=== PATIENT | female | born 1965 | race Caucasian/White ===

== ENCOUNTER → 2016-07-05 | Outpatient (CLI) | payer BC ==
[~2016-07-05] MED LIST: CITA20TA9 PO; CYCL10TA6 PO; HYDC25 PO; LISI-729 PO; PANT40TA PO; RXC5 PO; VALA1TAB PO
--- NOTE | 2016-07-05 13:35 | MAMMOGRAPHY REPORT ---
BILATERAL DIGITAL SCREENING MAMMOGRAM TOMOSYNTHESIS WITH CAD: 07/05/2016 CLINICAL HISTORY: Routine screening. Patient has no complaints. TECHNIQUE: Breast tomosynthesis in addition to standard 2D mammography was performed. Current study was also evaluated with a Computer Aided Detection (CAD) system. COMPARISON: Comparison is made to exams dated: 07/01/2015 mammogram, 04/03/2014 mammogram, 08/14/2014 mammogram, 04/15/2013 mammogram, and 04/09/2012 mammogram - [facility]. BREAST COMPOSITION: The tissue of both breasts is heterogeneously dense, which may obscure small ma sses. FINDINGS: No suspicious masses, calcifications, or areas of architectural distortion are noted in e ither breast. There has been no significant interval change compared to prior exams. Nodular asymme try in the left superior posterior breast on the MLO view appears similar to the 2015 exam. IMPRESSION: ACR BI-RADS CATEGORY 2: BENIGN There is no mammographic evidence of malignancy. A 1 year screening mammogram is recommended. The p atient will receive written notification of the results. Approximately 10% of breast cancers are not detected with mammography. A negative mammographic repor t should not delay biopsy if a clinically suggestive mass is present. Brenda Miller M.D. ah/:07/05/2016 12:44:22 Metal Sprayer Machined Parts: Janessa MONTE(Blaine)(M), [facility] letter sent: Normal 1/2 BI-RADS Code: ACR BI-RADS Category 2: Benign
== END | disposition home or self-care (01) ==
LOC: C.MAMM 07:47
PROVIDERS: ATTEND Family Medicine
DX: Z12.31 Encounter for screening mammogram for malignant neoplasm of breast (principal)

== ENCOUNTER → 2017-07-09 | Outpatient (CLI) | payer OTHER ==
--- NOTE | 2017-07-10 07:57 | MAMMOGRAPHY REPORT ---
BILATERAL DIGITAL SCREENING MAMMOGRAM TOMOSYNTHESIS WITH CAD: 07/09/2017 CLINICAL HISTORY: Routine screening. Patient has no complaints. TECHNIQUE: Breast tomosynthesis in addition to standard 2D mammography was performed. Current study was also evaluated with a Computer Aided Detection (CAD) system. COMPARISON: Comparison is made to exams dated: 07/05/2016 mammogram, 07/01/2015 mammogram, 04/03/2014 mammogram, 04/02/2013 mammogram, 04/01/2012 mammogram, and 03/29/2011 mammogram - [facility]. BREAST COMPOSITION: The tissue of both breasts is heterogeneously dense, which may obscure small mas ses. FINDINGS: The parenchymal pattern is unchanged. No developing mass, architectural distortion or clus ter of suspicious microcalcifications is seen in either breast. IMPRESSION: ACR BI-RADS CATEGORY 2: BENIGN There is no mammographic evidence of malignancy. A 1 year screening mammogram is recommended. The pa tient will receive written notification of the results. Approximately 10% of breast cancers are not detected with mammography. A negative mammographic report should not delay biopsy if a clinically suggestive mass is present. Harmony Dill M.D. ay/:07/09/2017 17:42:44 Commercial Loan Manager: Opal MONTE(Blaine)(M), [facility] letter sent: Normal 1/2 BI-RADS Code: ACR BI-RADS Category 2: Benign
== END | disposition home or self-care (01) ==
LOC: C.MAMM 08:12
PROVIDERS: ATTEND Physician Assistant
DX: Z12.31 Encounter for screening mammogram for malignant neoplasm of breast (principal)

== ENCOUNTER 2018-11-19 06:57 | Inpatient (IN) ==
--- NOTE | 2018-10-10 11:16 | PAT Medication Instructions ---
Medication Instructions Date of Service October 10, 2018 Home Medications acetaminophen-codeine 1 tab PO UD PRN citalopram 40 mg PO QAM diphenhydramine HCl [Benadryl] 25 mg PO UD PRN fexofenadine [Jessica Allergy] 60 mg PO UD PRN hydrochlorothiazide 25 mg PO QAM ibuprofen 600 mg PO UD PRN lisinopril 5 mg PO QAM pantoprazole 40 mg PO QAM pseudoephedrine HCl [Sudafed] 30 mg PO UD PRN ASK your surgeon for instructions ibuprofen 600 mg PO UD PRN DO NOT take the morning of surgery diphenhydramine HCl [Benadryl] 25 mg PO UD PRN fexofenadine [Jessica Allergy] 60 mg PO UD PRN hydrochlorothiazide 25 mg PO QAM lisinopril 5 mg PO QAM pseudoephedrine HCl [Sudafed] 30 mg PO UD PRN Take morning of surgery With a small sip of water, OTHERWISE NOTHING TO EAT OR DRINK AFTER MIDNIGHT: acetaminophen-codeine 1 tab PO UD PRN (okay to take up to 4 hours prior to surgery if needed) citalopram 40 mg PO QAM pantoprazole 40 mg PO QAM Other Notes If you have any questions please call us at [phone] or [phone] or [phone] or [phone]
--- NOTE | 2018-10-11 09:39 | Anesthesiology Consultation ---
Date of Service October 11, 2018 Assessment & Plan (1) Encounter for pre-operative examination: Chart Review Chart Review: Acceptable Risk for Surgery and Patient seen in Pre Admission Testing Teaching & Discussion Pre-Anesthesia Teaching/Discussion Notes: Instructed NPO after midnight before surgery,except medications with 15 cc of water. Medication instructions provided according to the PAT guidelines. History Surgery Operation Date: 10/25/18 07:45 Proposed Procedures p L4-L5 Removal Hardware, L3-L5 Decompression, Possible L5-S1 Fusion, Spinal Cord Monitoring - Enoch Rosas DO Height/Weight Height: 5 ft Weight: 80.1 kg Allergies Allergy/AdvReac Type Severity Reaction Status Date / Time Iodinated Contrast- Oral and Allergy Unknown IVP Verified 10/08/18 14:08 IV Dye DYE-HIVES latex Allergy Unknown REACTION Verified 10/08/18 14:08 TO LATEX POWDER ONLY strawberry Allergy Unknown HIVES, Verified 10/08/18 14:08 TROUBLE BREATHING Medications Home Medications Medication Instructions Recorded Confirmed Last Taken acetaminophen-codeine 1 tab PO UD PRN 10/08/18 10/08/18 Unknown citalopram 40 mg PO QAM 10/08/18 10/08/18 10/08/18 diphenhydramine HCl [Benadryl] 25 mg PO UD PRN 10/08/18 10/08/18 Unknown fexofenadine [Jessica Allergy] 60 mg PO UD PRN 10/08/18 10/08/18 Unknown hydrochlorothiazide 25 mg PO QAM 10/08/18 10/08/18 10/08/18 ibuprofen 600 mg PO UD PRN 10/08/18 10/08/18 Unknown lisinopril 5 mg PO QAM 10/08/18 10/08/18 10/08/18 pantoprazole 40 mg PO QAM 10/08/18 10/08/18 10/08/18 pseudoephedrine HCl [Sudafed] 30 mg PO UD PRN 10/08/18 10/08/18 Unknown Past Medical History Medical History Acid reflux CONTROLLED Adenomyosis Anxiety and depression Fatty liver History of anemia HX IRON INFUSIONS X 2 "LAST YR"; SINCE IMPROVED Hyperlipidemia Hypertension Osteoarthritis Spinal stenosis Exercise / Class Metabolic Activity III < 4 Walking/Shop/Light housework (USES CANE PRN) Past Family History Family History Mother Family history of lung cancer Father Family history of rectal cancer Grandfather Family history of breast cancer Other Family history of breast cancer in mother Past Surgical History Surgical History History of carpal tunnel surgery of right wrist History of colonoscopy (X2); ONE WITH ENDOSCOPY History of dilation and curettage History of lumbar fusion History of shoulder surgery RIGHT History of wisdom tooth extraction Past Anesthesia History No Hx of Anesthesia Complications and No Family Hx of Anesthesia Complications History of PONV No Hx of PONV and No Hx of Motion Sickness Social History Smoking Status: Former smoker Do You Dip or Chew Tobacco: No Smoking End Date: QUIT 1987 Hx Alcohol Use: Yes Alcohol type: beer and wine alcohol intake frequency: holidays/special occasions only Hx 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 Physical Exam Vital Signs VITALS BP 130/84 P 80 TEMP 98.9 SP02 96%RA RESP 18 PHYSICAL Full neck and c-spine range of motion. Full TMJ range of motion. TMD 3.5 finger breaths Mallampati Score 2 Dentition: intact Lungs: clear throughout to auscultation Cardiac: regular rate and rhythm, no murmurs noted Spine: normal Carotid arteries: negative bruit Extremities: no edema Testing Laboratory Results 10/11/18 09:58 10/11/18 09:58 10/11/18 10/11/18 10/11/18 09:58 09:58 09:58 PT 10.6 INR 1.0 APTT 27.3 Urine Color Yellow Urine Appearance Clear Urine pH 5.0 Ur Specific [place] 1.017 Urine Protein Negative Urine Glucose (UA) Negative Urine Ketones Negative Urine Nitrite Negative Ur Leukocyte Esterase 1+ H Urine WBC (Auto) 1-5 Urine RBC (Auto) 5-10 H U Hyaline Cast (Auto) 1-5 U Epithel Cells (Auto) >30 H Urine Bacteria (Auto) 1+ H Blood Type A Positive Antibody Screen NEGATIVE Surgeon made aware of abnormal UA. Electrocardiogram Date: 10/11/18 NSR at 64bpm. Low voltage QRS. Chest X-Ray Date: 10/11/18 Findings: + NAD Stress Test Date: 04/23/13 Type: DSE Nonischemic DSE. No arrhythmia noted with stress. EF 60-65%. No RWMA. No significant valvular disease. 93% MPHR.
--- NOTE | 2018-10-11 10:30 | XRay Report ---
XR chest Pre-admission PA/Lat CLINICAL HISTORY: pat preoperative evaluation COMPARISON STUDY: 04/11/2016 FINDINGS: The bones soft tissues and hemidiaphragms are normal. The cardiomediastinal silhouette is n ormal. The lungs are clear. The pulmonary vasculature is normal. IMPRESSION: Negative chest. The above report was generated using voice recognition software. It may contain grammatical, syntax or spelling errors. Electronically signed by: Gumaro Zhang M.D. 10/11/2018 10:29 AM
[2018-10-11 10:49] LABS: Basophils # (auto) 0.03 K/uL (0-0.2); Basophils % (auto) 0.3 %; Eosinophils # (auto) 0.29 K/uL (0-0.5); Eosinophils % (auto) 3.4 %; Hematocrit (blood only) 42.8 % (37-47); Hemoglobin 14.6 g/dL (12.0-16.0); Immature Granulocytes # (auto) 0.01 K/uL (0.00-0.02); Immature Granulocytes % (auto) 0.1 %; Lymphocytes # (auto) 2.48 K/uL (1.2-3.4); Lymphocytes % (auto) 28.9 %; Mean Corpuscular Hgb Conc 34.1 g/dL (32-36); Mean Corpuscular Volume 83.9 fL (80-100); Mean Platelet Volume 9.2 fL (7.4-10.4); Monocytes # (auto) 0.66 K/uL (0.11-0.59); Monocytes % (auto) 7.7 %; Neutrophils # (auto) 5.12 K/uL (1.4-6.5); Neutrophils % (auto) 59.6 %; Platelet Count 329 K/uL (130-400); RDW Coefficient of Variation 12.9 % (11.5-14.5); RDW Standard Deviation 39.1 fL (36.4-46.3); White Blood Count 8.59 K/uL (4.8-10.8)
[2018-10-11 10:55] LABS: Appearance Urine Clear (Clear); Bacteria Urine Automated 1+ (Negative); Bilirubin Urine Negative (Negative); Blood Urine Trace (Negative); Color Urine Yellow; Epithelial Cell Urine Auto >30 /lpf (0-5); Glucose Urine UA Negative (Negative); Ketones Urine Negative (Negative); Leukocyte Esterase Urine 1+ (Negative); Nitrite Urine Negative (Negative); Protein Urine Negative (Negative); Specific Gravity Urine 1.017 (1.000-1.030); Urobilinogen Urine Negative (Negative)
[2018-10-11 10:57] LABS: BUN Creatinine Ratio 15.2 (10-20); Calcium 8.8 mg/dl (8.5-10.1); Creatinine Clr Calc Pharmacy 73.5 ml/min; Est GFR (Non-African American) 81.1; Potassium 3.9 mmol/L (3.5-5.1)
[2018-10-11 11:01] LABS: Partial Thromboplastin Time 27.3 Seconds (21.0-31.0); Prothrombin Time 10.6 Seconds (9.0-12.0)
[~2018-11-19 06:57] MED LIST changes: +ACETAMINOPHEN 500 MG TAB PO SCH; +CEFAZOLIN 2000MG 2,000 MG/15 ML SYR IV SCH; -CITA20TA9 PO; -CYCL10TA6 PO; +CeleBREX 200 MG CAP PO SCH; +GABAPENTIN 300 MG x 3 PO SCH; +GABAPENTIN 900 MG DOSE PO SCH; -HYDC25 PO; -LISI-729 PO; +LR 15ML/HR IV SCH; +LR 500ML BOLUS IV SCH; -PANT40TA PO; -RXC5 PO; +SODIUM CHLORIDE 0.9% 250 ML IV PRN; -VALA1TAB PO
[2018-11-19] MEDS ORDERED: SODIUM CHLORIDE 0.9% 250 ML IV PRN (07:15)
[2018-11-19] MEDS ORDERED: ONDANSETRON INJ 2 MG/ML 2 ML VIAL ONE ×2 (08:17→11:12)
[2018-11-19] MEDS ORDERED: LIDOCAINE HCL 2% 2 ML VIAL/AMP(20MG/ML) INFIL ONE (08:17)
[2018-11-19] MEDS ORDERED: PROPOFOL IV EMULSION 10 MG/ML 20 ML VIAL IV ONE (08:17)
[2018-11-19] MEDS ORDERED: ROCURONIUM BROMIDE 10 MG/ML 5 ML VIAL ONE ×2 (08:17→11:27)
[2018-11-19] MEDS ORDERED: fentaNYL citrate 100 MCG/2 ML VIAL ONE ×3 (08:17→10:04)
[2018-11-19] MEDS ORDERED: MIDAZOLAM HCL 1 MG/ML 2ML VIAL ONE (08:17)
[2018-11-19] MEDS ORDERED: NEOSTIGMINE METHYLSULFATE 1 MG/ML 10ML VIAL ONE (08:24)
[2018-11-19] MEDS ORDERED: GLYCOPYRROLATE 0.2 MG/ML VIAL ONE (08:24)
[2018-11-19] MEDS ORDERED: ATROPINE SULFATE 0.1 MG/ML 10ML SYR IV PRN (08:44)
[2018-11-19] MEDS ORDERED: LABETALOL HCL IV 5 MG/ML 20ML IV PRN (08:44)
[2018-11-19] MEDS ORDERED: ONDANSETRON INJ 2 MG/ML 2 ML VIAL IV PRN ×2 (08:44→13:04)
[2018-11-19] MEDS ORDERED: PROMETHAZINE HCL 6.25 MG in SODIUM CHLORIDE 0.9% 50 ML IV PRN (08:44)
--- NOTE | 2018-11-19 08:49 | History & Physical Bridge Note ---
Date of Service November 19, 2018 History & Physical Bridge Note I have examined the patient, reviewed the History & Physical and in the interval since the performance of the History & Physical I have noted the following changes of clinical significance: no changes noted
--- NOTE | 2018-11-19 08:50 | History & Physical Report ---
Date of Service November 19, 2018 Assessment & Plan (1) Spinal stenosis, lumbar region with neurogenic claudication: Removal of hardware L4-L5 L3-4 decompression L3-L5 possible L5-S1 fusion Present on Admission?: Yes History of Present Illness Chief Complaint: Back and bilateral leg pain Primary Care Provider: Christine Haas PA-C This is a 53-year-old female who presents with chronic persistent back and bilateral leg pain. After failing extensive course of nonoperative care she is here for surgical intervention. Allergies Allergy/AdvReac Type Severity Reaction Status Date / Time Iodinated Contrast- Oral and Allergy Unknown IVP Verified 11/19/18 07:33 IV Dye DYE-HIVES latex Allergy Unknown REACTION Verified 11/19/18 07:33 TO LATEX POWDER ONLY strawberry Allergy Unknown HIVES, Verified 11/19/18 07:33 TROUBLE BREATHING Home Medications Home Medications Medication Instructions Recorded Confirmed Type acetaminophen-codeine 1 tab PO UD PRN 10/08/18 11/19/18 History citalopram 40 mg PO QAM 10/08/18 10/08/18 History diphenhydramine HCl [Benadryl] 25 mg PO UD PRN 10/08/18 11/19/18 History fexofenadine [Jessica Allergy] 60 mg PO UD PRN 10/08/18 11/19/18 History hydrochlorothiazide 25 mg PO QAM 10/08/18 10/08/18 History ibuprofen 600 mg PO UD PRN 10/08/18 11/19/18 History lisinopril 5 mg PO QAM 10/08/18 10/08/18 History pantoprazole 40 mg PO QAM 10/08/18 10/08/18 History pseudoephedrine HCl [Sudafed] 30 mg PO UD PRN 10/08/18 11/19/18 History Past Med/Surg History Medical History Acid reflux CONTROLLED Adenomyosis Anxiety and depression Fatty liver History of anemia HX IRON INFUSIONS X 2 "LAST YR"; SINCE IMPROVED Hyperlipidemia Hypertension Osteoarthritis Spinal stenosis Surgical History History of carpal tunnel surgery of right wrist History of colonoscopy (X2); ONE WITH ENDOSCOPY History of dilation and curettage History of lumbar fusion History of shoulder surgery RIGHT History of wisdom tooth extraction Family History Mother Family history of lung cancer Father Family history of rectal cancer Grandfather Family history of breast cancer Other Family history of breast cancer in mother Social History Preferred Language: Colombian Communication Ability: Effective Electric Motor Control Assembler Required: No Beliefs That Will Affect Care: None Current Living Situation: Family Other Information That Helps Us Care for You: No Feels Safe at Home: Yes Smoking Status: Former smoker Do You Dip or Chew Tobacco: No Smoking End Date: QUIT 1987 Hx Alcohol Use: Yes Alcohol type: beer and wine Hx Substance Use: 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 Results & Data Vital Signs (Past 12 Hours) Vital Signs Temp Pulse Resp BP Pulse Ox 11/19/18 07:40 37.1 C 86 20 150/83 H 98
[2018-11-19] MEDS ORDERED: BUPIVACAINE/EPINEPHRINE 0.5% MPF 1:200,000 30 ML VIAL ONE (09:06)
[2018-11-19] MEDS ORDERED: BACITRACIN INJ 50,000 UNIT VIAL ONE (09:07)
[2018-11-19] MEDS ORDERED: HYDROmorphone INJ 2 MG/ML SYR/VIAL ONE ×2 (10:03→11:24)
[2018-11-19] MEDS ORDERED: FLOSEAL HEMOSTATIC MATRIX 10ML TOP ONE (10:11)
[2018-11-19] MEDS ORDERED: ePHEDrine sulfate 50 MG/ML SYR ONE (11:12)
[2018-11-19] MEDS ORDERED: PHENYLEPHRINE 100MCG/ML 5ML SYR ONE (11:12)
[2018-11-19] MEDS ORDERED: KETOROLAC 30 MG/ML VIAL ONE (11:12)
[2018-11-19] MEDS ORDERED: LARYING-O-JET KIT (LTA) ONE (11:27)
--- NOTE | 2018-11-19 11:38 | Operative Report ---
Post Operative Report Pre & Post Diagnosis Operation Date: 11/19/18 09:05 Pre-Op Diagnosis: Spinal stenosis, lumbar region with neurogenic claudication Post-Op Diagnosis: Spinal stenosis, lumbar region with neurogenic claudication Procedure Operation Date: 11/19/18 09:05 Actual Procedures #1 removal of posterior instrumentation L4-5 per #2 exploration of fusion L4-5 per #3 lumbar decompression with bilateral medial facetectomies and foraminotomies L2-3 L3-4. #4 posterior spinal fusion L3-4. #5 placement posterior instrumentation L3-4 per #6 interbody fusion L3-4. #7 placement of peek cage 10 x 22 mm at L3-4 per #8 placement of local autograft in the posterior lateral gutters per #9 placement infuse collagen sponge bone mass graft in the posterior lateral gutters and ostial amp and interbody space. Surgeon Enoch Rosas, [employer]inc Plating Machine Operator None Estimated Blood Loss 150 Findings See Below The patient is 5 foot tall 79.7 kg with a BMI of 34.3. The patient's body habitus created marked increased technical difficulty throughout the procedure adding at least 25% increase in operative time. Specimens None Indications This is a 53-year-old female that presents with significant back and bilateral leg pain progressive for several months. It is unresponsive to nonoperative care and is here for surgical intervention. Description of Procedure Patient was met with identified and informed consent obtained. She was then taken to the operative suite underwent intubation placed in a prone position the Marcos table on top of the Kishor frame. Prominences well-padded eyes inspected to ensure no external pressure placed upon the peer at this point the lumbar spine was prepped and draped in a normal sterile fashion. Sharp dissection with the assistance of Bovie cautery was performed down to and exposing the lamina and transverse processes of L3 and the instrumentation at L4-L5 bilaterally. I then proceed remove the hardware bilaterally at L4-5 explore the fusion mass noting it to be intact. Then performed a complete laminectomy of L3 partial laminectomy of L2 and bilateral medial facetectomies foraminotomies addressing severe stenosis. Pedicle screws were then placed in L3 and L4 bilaterally with the assistance of fluoroscopy the process douglas placed. By way of a transforaminal approach on the left complete discectomy was performed in plate graded to subcortical bleeding bone and a 10 x 22 mm peek cage filled with osteo-amp bone graft tapped in position. The rods were then compressed locked into final position bilaterally. The transverse processes of L3 and L4 burred to subcortical bleeding bone. Infuse collagen sponge mass graft local autograft placed in the posterior lateral gutters. 15 round JORDY drain inserted. The incision was then closed with 1 Vicryl in the fascia 2-0 Vicryl substantially and 4-0 Monocryl for final skin closure. Steri-Strips dressings placed. Patient will continue PACU stable condition. Please note spinal cord monitoring was utilized throughout the procedure no changes in. I attest to the content of the Intraoperative Record and any orders documented therein. Any exceptions are noted below.
--- NOTE | 2018-11-19 11:41 | Fluoroscopy Report ---
FL lumbar spine 2-3V CLINICAL HISTORY: 53 years-old Female presenting with L3-L5 REMOVAL OF HARDWARE/L3-L5 DECOMP/POSS. L5 -S1. TECHNIQUE: 2 fluoroscopic image(s) recorded as part of an intraoperative procedure. COMPARISON: 02/03/2016. FINDINGS/IMPRESSION: Bilateral posterior transpedicular screw douglas fixation of L3-4 with interbody spacers at L3-4 and L4-5 . Laminectomy defects at L3 and L4. Please see surgical report for further details. Fluoroscopy dosage (mGy): 12.41. Fluoroscopy time: 13.7 seconds. Number or time of high level fluoroscopy (HLF), digital spot, or digital subtraction images: 0. Electronically signed by: Jorje Valiente M.D. 11/19/2018 11:40 AM
[2018-11-19] MEDS: HYDROmorphone INJ 1 MG/ML SYRINGE IV PRN ×4 (12:05→12:20)
--- NOTE | 2018-11-19 12:33 | Anesthesiology Progress Note ---
Date of Service November 19, 2018 Anesthesia Post Procedure Vital Signs Vital Signs: Temp Pulse Pulse Resp BP BP Pulse Ox 11/19/18 12:30 37.0 C 72 18 134/90 99 11/19/18 12:20 75 18 136/73 99 11/19/18 12:10 78 18 136/84 100 11/19/18 12:00 79 18 135/82 99 11/19/18 11:50 79 18 147/86 H 99 11/19/18 11:43 37.1 C 85 18 150/98 H 97 11/19/18 07:40 37.1 C 86 20 150/83 H 98 Pain Intensity Medial Back: Pain Intensity: 3 Transfer of Care Handoff Completed per policy Notes Mental Status: alert / awake / arousable Patient Amnestic to Procedure: Yes Nausea / Vomiting: adequately controlled Pain: adequately controlled Airway Patency, RR, SpO2: stable & adequate BP & HR: stable & adequate Hydration State: stable & adequate Anesthetic Complications: no major complications apparent
[2018-11-19] MEDS ORDERED: ACETAMINOPHEN 1,000 MG/100 ML VIAL IV PRN (13:04)
[2018-11-19] MEDS ORDERED: ONDANSETRON 4 MG TAB PO PRN (13:04)
[2018-11-19] MEDS ORDERED: LORazepam 0.5 MG/1 ML VIAL IV PRN (13:04)
[2018-11-19] MEDS ORDERED: ALUMINUM/MAGNESIUM SUSP 30 ML UDC PO PRN (13:04)
[2018-11-19] MEDS ORDERED: PSEUDOEPHEDRINE HCL 30 MG TAB PO PRN (13:04)
[2018-11-19] MEDS ORDERED: FEXOFENADINE 60 MG TAB PO PRN (13:04)
[2018-11-19] MEDS ORDERED: LORazepam 0.5 MG TAB PO PRN (13:04)
[2018-11-19] MEDS ORDERED: DO NOT ADMINISTER PNEUMOCOCCAL VACCINE PRN (13:04)
[2018-11-19] MEDS ORDERED: DEXAMETHASONE SOD PHOSPHATE 8 MG in SYRINGE 0 ML IV PRN (13:04)
[2018-11-19] MEDS ORDERED: SOD PHOSPHATE/SOD BIPHOSPHATE ENEMA 132 ML BTL PR PRN (13:04)
[2018-11-19] MEDS ORDERED: MAGNESIUM HYDROXIDE SUSP 30 ML UDC PO PRN (13:04)
[2018-11-19] MEDS ORDERED: RACEPINEPHRINE 2.25% NEBU SOLN 0.5 ML VIAL INH PRN (13:04)
[2018-11-19] MEDS ORDERED: PROMETHAZINE HCL 12.5 MG in SODIUM CHLORIDE 0.9% 50 ML IV PRN (13:04)
[2018-11-19] MEDS ORDERED: METOCLOPRAMIDE HCL INJ 5 MG/ML 2 ML VIAL IV PRN (13:04)
[2018-11-19] MEDS ORDERED: HYDROmorphone INJ 0.5 MG/0.5 ML SYR IV PRN (13:04)
[2018-11-19] MEDS ORDERED: NALOXONE HCL 0.4 MG/1 ML VIAL/CARP IV PRN (13:04)
[2018-11-19] MEDS ORDERED: DO NOT ADMINISTER FLU VACCINE PRN (13:04)
[2018-11-19] MEDS ORDERED: BISACODYL 10 MG SUPP PR PRN (13:04)
[2018-11-19] MEDS ORDERED: FAMOTIDINE 20 MG TAB PO PRN (13:04)
[2018-11-19] MEDS ORDERED: ACETAMINOPHEN 500 MG TAB PO PRN (13:04)
[2018-11-19] MEDS: KETOROLAC TROMETHAMINE 15 MG/ML VIAL IV SCH ×3 (14:24→23:41)
[2018-11-19] MEDS: CEFAZOLIN 2000MG 2,000 MG/15 ML SYR IV SCH ×2 (17:03→23:41)
[2018-11-19] MEDS: OXYCODONE HCL IR 5 MG TAB (IMMEDIATE RELEASE) PO PRN (19:45)
[2018-11-19] MEDS: LACTATED RINGER'S 1,000 ML IV SCH ×2 (19:54)
[2018-11-19] MEDS: DOCUSATE SODIUM/SENNA 50/8.6MG TAB PO SCH (21:40)
[2018-11-20] MEDS: LACTATED RINGER'S 1,000 ML IV SCH ×2 (02:19→15:54)
[2018-11-20] MEDS: POLYETHYLENE (MIRALAX) 17 GM PACK PO SCH ×3 (05:30→16:48)
[2018-11-20 06:14] LABS: Basophils # (auto) 0.01 K/uL (0-0.2); Basophils % (auto) 0.1 %; Hematocrit (blood only) 32.9 % (37-47); Hemoglobin 11.3 g/dL (12.0-16.0); Immature Granulocytes # (auto) 0.04 K/uL (0.00-0.02); Immature Granulocytes % (auto) 0.2 %; Lymphocytes # (auto) 1.62 K/uL (1.2-3.4); Lymphocytes % (auto) 10.1 %; Mean Corpuscular Hgb Conc 34.3 g/dL (32-36); Mean Corpuscular Volume 84.1 fL (80-100); Mean Platelet Volume 9.2 fL (7.4-10.4); Monocytes # (auto) 1.17 K/uL (0.11-0.59); Monocytes % (auto) 7.3 %; Neutrophils # (auto) 13.25 K/uL (1.4-6.5); Neutrophils % (auto) 82.3 %; Platelet Count 221 K/uL (130-400); RDW Coefficient of Variation 12.9 % (11.5-14.5); RDW Standard Deviation 39.4 fL (36.4-46.3); Red Blood Count 3.91 M/uL (4.2-5.4); White Blood Count 16.09 K/uL (4.8-10.8)
[2018-11-20 06:44] LABS: BUN Creatinine Ratio 13.4 (10-20); Calcium 8.4 mg/dl (8.5-10.1); Creatinine Clr Calc Pharmacy 73.3 ml/min; Est GFR (Non-African American) 81.1; Potassium 3.8 mmol/L (3.5-5.1)
[2018-11-20] MEDS: KETOROLAC TROMETHAMINE 15 MG/ML VIAL IV SCH (07:04)
[2018-11-20] MEDS: OXYCODONE HCL IR 5 MG TAB (IMMEDIATE RELEASE) PO PRN (07:04)
--- NOTE | 2018-11-20 07:58 | Anesthesiology Progress Note ---
Date of Service November 20, 2018 Anesthesia Post Procedure Vital Signs Vital Signs: Temp Pulse Pulse Resp BP Pulse Ox 11/20/18 06:47 36.9 C 70 18 104/70 96 11/20/18 03:02 36.5 C 64 16 104/68 94 11/19/18 23:08 36.8 C 71 18 102/63 96 11/19/18 15:50 36.7 C 78 17 104/63 96 11/19/18 14:49 99 H 16 90/57 L 95 11/19/18 13:48 67 67 18 113/75 96 11/19/18 13:32 62 18 134/79 95 11/19/18 13:15 70 18 147/84 H 94 11/19/18 12:45 36.7 C 74 18 127/80 96 11/19/18 12:30 37.0 C 72 18 134/90 99 11/19/18 12:20 75 18 136/73 99 11/19/18 12:10 78 18 136/84 100 11/19/18 12:00 79 18 135/82 99 11/19/18 11:50 79 18 147/86 H 99 11/19/18 11:43 37.1 C 85 18 150/98 H 97 Pain Intensity Medial Back: Pain Intensity: 5 Notes Mental Status: alert / awake / arousable and participated in evaluation Patient Amnestic to Procedure: Yes Nausea / Vomiting: adequately controlled Pain: adequately controlled Airway Patency, RR, SpO2: stable & adequate BP & HR: stable & adequate Hydration State: stable & adequate Anesthetic Complications: no major complications apparent and Pt Satisfied with anesthetic care
[2018-11-20] MEDS: PANTOprazole 40 MG TAB PO SCH (08:45)
[2018-11-20] MEDS: hydroCHLOROthiazide 25 MG TAB PO SCH (08:46)
[2018-11-20] MEDS: LISINOPRIL 5 MG TAB PO SCH (08:46)
[2018-11-20] MEDS: CITALOPRAM 40 MG TAB PO SCH (08:46)
[2018-11-20] MEDS: TRAMADOL HCL 50 MG TABLET PO PRN ×2 (12:45→19:03)
--- NOTE | 2018-11-20 13:06 | Orthopedic Progress Note ---
Date of Service November 20, 2018 Assessment & Plan (1) Spinal stenosis, lumbar region with neurogenic claudication: This time we will continue physical therapy monitor her JORDY output anticipate discharge home Sunday. Present on Admission?: Yes Subjective Patient's back pain is controlled leg symptoms markedly improved. Physical Exam Physical Exam: Patient appears comfortable. She is good strength testing. Results & Data Vital Signs (Past 12 Hours) Vital Signs Temp Pulse Resp BP Pulse Ox 11/20/18 11:12 37.1 C 66 18 109/72 91 11/20/18 06:47 36.9 C 70 18 104/70 96 11/20/18 03:02 36.5 C 64 16 104/68 94
[2018-11-20] MEDS: DOCUSATE SODIUM/SENNA 50/8.6MG TAB PO SCH (21:33)
[2018-11-21] MEDS: POLYETHYLENE (MIRALAX) 17 GM PACK PO SCH (00:23)
[2018-11-21] MEDS: TRAMADOL HCL 50 MG TABLET PO PRN ×2 (07:52→19:40)
[2018-11-21] MEDS: CITALOPRAM 40 MG TAB PO SCH (07:53)
[2018-11-21] MEDS: PANTOprazole 40 MG TAB PO SCH (07:53)
[2018-11-21] MEDS: hydroCHLOROthiazide 25 MG TAB PO SCH (07:54)
[2018-11-21] MEDS: LISINOPRIL 5 MG TAB PO SCH (07:54)
--- NOTE | 2018-11-21 08:26 | Orthopedic Progress Note ---
Date of Service November 21, 2018 Assessment & Plan (1) Spinal stenosis, lumbar region with neurogenic claudication: This time we will continue physical therapy advance her bowel regiment monitor JORDY output anticipate discharge home tomorrow. Present on Admission?: Yes Subjective Back pain is controlled leg symptoms markedly improved. Physical Exam Physical Exam: Patient is sitting in the chair at the bedside. She is good strength testing. Appears comfortable. Results & Data Vital Signs (Past 12 Hours) Vital Signs Temp Pulse Resp BP Pulse Ox 11/21/18 06:12 36.6 C 78 15 100/64 95 11/20/18 23:20 36.7 C 78 17 129/83 92
[2018-11-21] MEDS: OXYCODONE HCL IR 5 MG TAB (IMMEDIATE RELEASE) PO PRN ×3 (09:04→23:39)
[2018-11-21] MEDS: DOCUSATE SODIUM/SENNA 50/8.6MG TAB PO SCH (20:16)
[2018-11-22 00:05] VITALS: PULSE 74
[2018-11-22 06:30] VITALS: TEMP 98.1; O2SAT 97
[2018-11-22] MEDS: CITALOPRAM 40 MG TAB PO SCH (07:18)
[2018-11-22] MEDS: LISINOPRIL 5 MG TAB PO SCH (07:18)
[2018-11-22] MEDS: hydroCHLOROthiazide 25 MG TAB PO SCH (07:18)
[2018-11-22] MEDS: PANTOprazole 40 MG TAB PO SCH (07:18)
[2018-11-22] MEDS: OXYCODONE HCL IR 5 MG TAB (IMMEDIATE RELEASE) PO PRN (08:20)
[2018-11-22 09:52] VITALS: BP 150/83
--- NOTE | 2018-11-22 12:02 | Discharge Summary ---
Date of Service November 22, 2018 Admission HPI Per Admitting Provider This is a 53-year-old female who presents with chronic persistent back and bilateral leg pain. After failing extensive course of nonoperative care she is here for surgical intervention. Principal Diagnosis Lumbar spinal stenosis with neurogenic claudication Discharge Data Allergies Allergy/AdvReac Type Severity Reaction Status Date / Time Iodinated Contrast- Oral and Allergy Unknown IVP Verified 11/19/18 07:33 IV Dye DYE-HIVES latex Allergy Unknown REACTION Verified 11/19/18 07:33 TO LATEX POWDER ONLY strawberry Allergy Unknown HIVES, Verified 11/19/18 07:33 TROUBLE BREATHING Consultations 11/19/18 13:04 Consult Case Management - Discharge Planning Routine Procedures Performed Operation Date: 11/19/18 09:05 Actual Procedures p L3-L4 Decompression and Fusion, Spinal Cord Monitoring(Not Applicable) - Enoch Rosas DO s L4-L5 Removal of Hardware(Not Applicable) - Enoch Rosas DO Ordered Studies 11/19/18 09:05 FL fluoroscopy <1hr Routine FL lumbar spine 2-3V Routine Hospital Course (1) Spinal stenosis, lumbar region with neurogenic claudication: Patient underwent lumbar decompression fusion tolerated as well as taken to the orthopedic for postoperative. Postop day #1 she was up and ambulating nicely. Progressive postop day #2. Postop day 3 through the JORDY drain had decreased appropriately pain was well controlled. Subsequent discharge home. Discharge orders instructions from the chart for further review. Total Time Total Time Spent Total Time Spent (In Minutes): 20 minutes Discharge Plan Discharge Items Patient Disposition: Home - Self-Care Reason For Visit: LUMBAR OTHER INTERVERTEBRAL DISC DEGENERATION Discharge Diagnosis: Lumbar spinal stenosis with neurogenic claudication Discharge Goals: Improve function Activity: Per 'Additional Instructions' section Non-emergency contact: Primary Care Provider Call non-emergency contact if: you have any medication questions Follow-up/Referrals: Christine Hasa PA-C [Primary Care Provider] - Diet: Regular Addtl Provider Instructions: ACTIVITY RECOMMENDATIONS: SELF CARE INSTRUCTIONS AFTER THORACIC/LUMBAR FUSIONS 1. You may walk to your tolerance. It is good exercise for your legs and back. Expect some back and intermittent leg aches and pains. 2. You may perform "counter-top" level activities (make a sandwich, dusty with a project, etc.). 3. No bending or lifting of more than 10 pounds or back twisting of any nature (roll like a log when turning in bed). 4. You may ride in a car for 20-30 minutes at a time. No driving until after your first visit with your doctor. 5. Frequent changes of position and restricting sitting to 30 minutes at a time will help limit the amount of back spasms and stiffness you may experience. 6. You may discontinue the use of ambulatory aids (cane, crutches, etc.) once your strength and confidence allow. 7. You may clinical pharmacy coordinator the shower and let water strike your incision when you arrive home at least once daily. Do not take a tub bath, sit in a hot tub or go into a swimming pool until after your first recheck in the office. SPECIAL CARE INSTRUCTIONS: VERY IMPORTANT TO READ AND REVIEW A. Your surgical incision has been closed with a cosmetic suture under the skin that will dissolve in about 6 weeks. In 14 days, you can use a pair of clean scissors and cut the suture that is left outside of the skin at the ends of your incision. 1. The small skin tapes can be removed 7 days after surgery if they have not fallen off by that point. 2. You may keep the wound open to air as much as possible to promote healing after post-op day number 5 unless told otherwise by your doctor. 3. If you think the wound looks like it is becoming infected (redness or worsening drainage) and/or you are experiencing fever, chill or worsening back pain and muscle spasms, contact the office so that we may evaluate you as soon as possible. B. Complications are uncommon, but please contact us if you have any signs or symptoms of: 1. wound infection (fever higher than 102.5 degrees F, redness, separation of wound, drainage, or increasing pain from the incision) 2. blood clots in legs (pain, swelling, redness and warmth in legs) 3. urinary tract infection (fever higher than 102.5 degrees F, burning upon urination or increased frequency of urination) 4. nerve problems (inability to walk on your toes or heels, numbness, loss of bowel or bladder control) 5. any other symptoms that concern you C. Please call the office at if you have any concerns or questions about your operation or recovery. D. No smoking! Smoking drastically decreases the chance of a solid fusion. E. Do not take any anti-inflammatory medications (Indocin, Advil, Motrin, Aspirin, Naprosyn, etc.) as these may inhibit the chance of a solid fusion. Tylenol is okay to take for pain. MANAGING PAIN AFTER SPINAL SURGERY 1. Narcotic medication is intended for short-term use and will be provided for surgical pain. Surgical pain usually lasts for a period of 4-6 weeks. Narcotic medication includes Percocet, Vicodin, Darvocet, Tylenol #3 or Lortab. 2. Longer-term pain is more appropriately treated with non-narcotic medication such as Tylenol ES. 3. Muscle spasm is not appropriately treated with narcotics. Muscle relaxers such as Soma, Flexeril or Skelaxin can be used along with Tylenol ES. 4. Remember that we all live with some "aches and pains". This is not unusual or uncommon after an injury or as we get older. a. Back pain is expected and may include muscle spasms for 4 to 6 weeks after surgery. The pain should gradually improve. If the pain worsens for no apparent reason, please contact the office. b. Intermittent leg pain may also be experienced and should not be concerned about unless it worsens for no apparent reason. If so, please contact the office. 5. We will provide appropriate medication within the normal guidelines of their prescribed use. We will also be very cautious and aware of potential abuse and extended duration of patients' medication needs. a. Pain medications are for your comfort and to assist with sleep and rest so that the tissue can heal. They are not provided in order to return to normal activity and should not be used through the day. To do so or worsening pain at night can result from ongoing tissue damage and development of tolerance to the prescribed medicine. 6. Please allow 2-3 days to process refills. Prescriptions will not be mailed but must be picked up at the office. FOLLOW UP VISIT: Keep your scheduled follow-up appointment. Any questions, please call the office at . Prescriptions: New tramadol 50 mg Tablet 50 mg PO Q4H PRN (Reason: Pain, Moderate) Qty: 30 RF: 0 oxycodone 5 mg Tablet 5 mg PO Q4H PRN (Reason: Pain, Severe) Qty: 30 RF: 0 Continued citalopram 40 mg Tablet 40 mg PO QAM RF: 0 pantoprazole 40 mg Tablet,Delayed Release (Dr/Ec) 40 mg PO QAM RF: 0 lisinopril 5 mg Tablet 5 mg PO QAM RF: 0 hydrochlorothiazide 25 mg Tablet 25 mg PO QAM RF: 0 acetaminophen-codeine 300-15 mg Tablet 1 tab PO UD PRN (Reason: Pain) RF: 0 diphenhydramine HCl [Benadryl] 25 mg Capsule 25 mg PO UD PRN (Reason: SEASONAL ALLERGIES) RF: 0 fexofenadine [Jessica Allergy] 60 mg Tablet 60 mg PO UD PRN (Reason: SEASONAL ALLERGIES) RF: 0 pseudoephedrine HCl [Sudafed] 30 mg Tablet 30 mg PO UD PRN (Reason: SEASONAL ALLERGIES) RF: 0 Discontinued ibuprofen 600 mg Tablet 600 mg PO UD PRN (Reason: Pain) RF: 0 Stand-Alone Forms: [employer], [facility]/Other Patient Handouts: Surgery Prevent DVT After Discharge Orders: Discharge Order (Routine); Ordered 11/22/18 Ordered By: Enoch Rosas Admission Data Admit Date/Time: 11/19/18 11:45 Attending Provider: Enoch Rosas Admit Provider: Enoch Rosas Primary Care Provider: Christine Haas Service: Surgical Services Other Interventions: Discharge Summary Assessment (RN) Last Done: 11/22/18 09:49
== END 2018-11-22 13:10 | disposition home or self-care (01) | DRG 455 ==
LOC: ASU 06:57 → 3E 11:45

== ENCOUNTER 2024-03-26 07:20 | Inpatient (IN) ==
--- NOTE | 2024-02-27 12:10 | PAT Medication Instructions ---
Medication Instructions Date of Service February 27, 2024 Home Medications diphenhydramine HCl 25 mg capsule (Benadryl) 25 mg PO UD PRN fexofenadine 60 mg tablet (Jessica Allergy) 60 mg PO UD PRN hydrochlorothiazide 25 mg tablet 25 mg PO QAM pantoprazole 40 mg tablet,delayed release 40 mg PO QAM pseudoephedrine HCl 30 mg tablet (Sudafed) 30 mg PO UD PRN acetaminophen 300 mg-codeine 30 mg tablet 1 tab PO Q6H PRN citalopram 40 mg tablet 40 mg PO QAM cyclosporine 0.05 % eye drops in a dropperette (Restasis) 1 drp OPB BID diclofenac sodium 75 mg tablet,delayed release 75 mg PO QAM lisinopril 10 mg tablet 10 mg PO QAM metformin 500 mg tablet,extended release 24 hr 500 - 1,000 mg PO UD rosuvastatin 5 mg tablet 5 mg PO QAM ASK your surgeon for instructions diclofenac sodium 75 mg tablet,delayed release 75 mg PO QAM DO NOT take the morning of surgery diphenhydramine HCl 25 mg capsule (Benadryl) 25 mg PO UD PRN fexofenadine 60 mg tablet (Jessica Allergy) 60 mg PO UD PRN hydrochlorothiazide 25 mg tablet 25 mg PO QAM pseudoephedrine HCl 30 mg tablet (Sudafed) 30 mg PO UD PRN lisinopril 10 mg tablet 10 mg PO QAM metformin 500 mg tablet,extended release 24 hr 500 - 1,000 mg PO UD Take morning of surgery With a small sip of water, OTHERWISE NOTHING TO EAT OR DRINK AFTER MIDNIGHT: pantoprazole 40 mg tablet,delayed release 40 mg PO QAM acetaminophen 300 mg-codeine 30 mg tablet 1 tab PO Q6H PRN(if needed) citalopram 40 mg tablet 40 mg PO QAM cyclosporine 0.05 % eye drops in a dropperette (Restasis) 1 drp OPB BID rosuvastatin 5 mg tablet 5 mg PO QAM Take evening before surgery acetaminophen 300 mg-codeine 30 mg tablet 1 tab PO Q6H PRN(if needed) cyclosporine 0.05 % eye drops in a dropperette (Restasis) 1 drp OPB BID Other Notes If you have any questions please call us at [phone] or [phone] or [phone] or [phone]
--- NOTE | 2024-03-04 09:29 | Anesthesiology Consultation ---
Date of Service March 04, 2024 Assessment & Plan (1) Encounter for pre-operative examination: Chart Review Chart Review: Acceptable Risk for Surgery (pending PCP clearance ) and Patient seen in Pre Admission Testing - Awaiting PCP clearance 03/10/24 -[facility] Flaquito Reeves- please fax preop testing to PCP for review - Check BSG AM DOS Patient wears continous glucose monitor on upper extremity Per PAT appt on 03/04/24, no recent illness/disease exposures, illness related symptoms, or recent illness/disease positive tests. Will leave to surgeon's discretion if preop Covid testing needed Removal previous hardware, L3-4 decompression with posterior fusion 11/22/18= Done under GA with Grade 1 with MAC #3. ETT #7.0 Teaching & Discussion Pre-Anesthesia Teaching/Discussion Notes: Instructed NPO after midnight before surgery,except medications with 15 cc of water. Medication instructions provided according to the PAT guidelines. History Surgery Operation Date: 03/26/24 12:35 Proposed Procedures p L2-L3 Decompression and Fusion, Removal [place] L3-L4 - Enoch Rosas DO Height/Weight Height: 5 ft Weight: 81.8 kg Allergies Allergy/AdvReac Type Severity Reaction Status Date / Time Iodinated Contrast Media Allergy Unknown IVP Verified 02/25/24 11:23 DYE-HIVES latex Allergy Unknown REACTION Verified 02/25/24 11:23 TO LATEX POWDER ONLY Penicillins Allergy Unknown Patient Verified 03/04/24 09:25 avoids due to Family History strawberry Allergy Unknown HIVES, Verified 02/25/24 11:23 TROUBLE BREATHING Medications Home Medications Medication Instructions Recorded Confirmed Last Taken diphenhydramine HCl 25 mg capsule 25 mg PO UD PRN SEASONAL ALLERGIES 10/08/18 02/25/24 Unknown (Benadryl) fexofenadine 60 mg tablet (Jessica 60 mg PO UD PRN SEASONAL ALLERGIES 10/08/18 02/25/24 11/16/18 Allergy) hydrochlorothiazide 25 mg tablet 25 mg PO QAM 10/08/18 02/25/24 07/05/23 pantoprazole 40 mg tablet,delayed 40 mg PO QAM 10/08/18 02/25/24 07/05/23 release pseudoephedrine HCl 30 mg tablet 30 mg PO UD PRN SEASONAL ALLERGIES 10/08/18 02/25/24 11/16/18 (Sudafed) acetaminophen 300 mg-codeine 30 mg 1 tab PO Q6H PRN Headache 05/09/20 02/25/24 Unknown tablet citalopram 40 mg tablet 40 mg PO QAM 07/05/23 02/25/24 07/05/23 cyclosporine 0.05 % eye drops in a 1 drp OPB BID 07/05/23 02/25/24 07/05/23 dropperette (Restasis) diclofenac sodium 75 mg 75 mg PO QAM 07/05/23 02/25/24 07/05/23 tablet,delayed release lisinopril 10 mg tablet 10 mg PO QAM 07/05/23 02/25/24 07/05/23 metformin 500 mg tablet,extended 500 - 1,000 mg PO UD 07/05/23 02/25/24 07/05/23 release 24 hr rosuvastatin 5 mg tablet 5 mg PO QAM 07/05/23 02/25/24 07/04/23 Past Medical History Medical History Acid reflux controlled Anxiety and depression Fatty liver History of anemia HX IRON INFUSIONS X 2 (around 2018); SINCE IMPROVED Hx of migraines Hyperlipidemia Hypertension Osteoarthritis Post herpetic neuralgia left shoulder blade (since 2018) Sleep apnea CPAP Spinal stenosis Type 2 diabetes mellitus NIDDM Exercise / Class Metabolic Activity II 4-5 Yardwork/Stairs/Walk up hill (one flight of stairs- no chest pain or SOB ) Past Family History Family History Mother Family history of lung cancer Father Family history of rectal cancer Grandfather Family history of breast cancer Other Family history of breast cancer in mother Past Surgical History Surgical History History of carpal tunnel surgery of right wrist History of cholecystectomy History of colonoscopy History of dilation and curettage w/removal uterine polyps History of esophagogastroduodenoscopy (EGD) History of lumbar fusion 2016, L4-L5 2019, L3-L4 and removal hardware L4-L5 History of shoulder surgery right shoulder decompression, 2017 left shoulder biceps tendonesis, 08/2022 History of wisdom tooth extraction Past Anesthesia History No Hx of Anesthesia Complications and No Family Hx of Anesthesia Complications History of PONV No Hx of PONV and No Hx of Motion Sickness Social History Smoking Status: Former smoker Do You Dip or Chew Tobacco: No Smoking End Date: 1987 Hx Alcohol Use: Yes Alcohol type: beer and wine alcohol intake frequency: holidays/special occasions only Hx Substance Use: Yes substance use type: former substance user, marijuana, crack/cocaine, hallucinogens and sedatives Last Used Substance Other:: many years ago-occasional use only (nothing since ) Review of Systems - Chronic chest sensation - around upper thorax- described as tightness- dx'ed as MSK- relieved with rest and muscle relaxant- present x many years- has had negative cardiac work up. Can be triggered by rolling over in bed or can come without trigger Patient denies chest pain, shortness of breath, dyspnea on exertion, cough, wheezing, palpitations. No hx of seizures, stroke, HI. No hx of blood clots or blood transfusions Physical Exam Vital Signs VITALS BP 112/63 P 74 TEMP 98.3 SP02 95% RESP 16 Constitutional no acute distress ENMT Mouth: no TMJ clicking Thyromental Distance: > or= 3.5 Finger Breadths (3.5) Mallampati Class: I Neck neck extension not limited Respiratory normal respiratory effort; no respiratory distress Auscultation: lungs clear to auscultation bilaterally; no wheezes Cardiovascular Rate/Rhythm: regular rate and regular rhythm Heart Sounds: no murmur Vessels: no carotid bruit Musculoskeletal Spine: no pain with cervical ROM Extremities: extremities normal to inspection Psychiatric Orientation: alert Lab Results Anesthesia Preop Results Results Anesthesia Widget: WBC 8.16 K/ul (4.8-10.8) 03/04/24 Hgb 12.5 g/dl (12.0-16.0) 03/04/24 Hct 37.9 % (37.0-47.0) 03/04/24 Plt 359 K/uL (130-400) 03/04/24 Na 137 mmol/L (136-145) 03/04/24 K 3.7 mmol/L (3.5-5.1) 03/04/24 Cl 101 mmol/L (98-107) 03/04/24 CO2 29 mmol/L (21-32) 03/04/24 BUN 21 mg/dl (6-23) 03/04/24 Creat 1.16 mg/dl (0.6-1.2) 03/04/24 Glucose Level 122 mg/dl (70-99(Fasting)) H 03/04/24 PT 10.9 Seconds (9.0-12.0) 03/04/24 PTT 27 Seconds (21-31) 03/04/24 INR 1.0 (0.9-1.1) 03/04/24 HA1c 6.3 % (4.5-5.6) H 03/04/24 Urine Color Yellow 03/04/24 Urine Appearance Cloudy (Clear) A 03/04/24 Urine pH 6.0 (4.5-7.5) 03/04/24 Urine Specific [place] 1.016 (1.000-1.030) 03/04/24 Urine Protein Negative (Negative) 03/04/24 Urine Glucose (UA) Negative (Negative) 03/04/24 Urine Ketones Trace (Negative) H 03/04/24 Urine Blood Negative (Negative) 03/04/24 Urine Nitrite Negative (Negative) 03/04/24 Urine Bilirubin Negative (Negative) 03/04/24 Urine Urobilinogen Negative (Negative) 03/04/24 Urine Leukocyte Esterase 2+ (Negative) H 03/04/24 Urine WBC (Auto) 21-50 /hpf (0-5) H 03/04/24 Urine RBC (Auto) 6-10 /hpf (0-2) H 03/04/24 Urine Hyaline Casts (Auto) 3-5 /lpf (0-2) H 03/04/24 Urine Epithelial Cells (Auto) 11-20 /hpf (0-2) H 03/04/24 Urine Bacteria (Auto) 4+ (None Seen) H 03/04/24 Blood Type A Positive 03/04/24 Antibody Screen NEGATIVE 03/04/24 Testing Laboratory Results Surgeon's office informed of abnormal UA- will leave to surgeon's discretion with how to proceed Electrocardiogram Date: 03/04/24 Findings: + NSR @ (76bpm) Low voltage QRS Cannot rule out anterior infarct (cited on or before May 09, 2020) When compared to EKG from May 09, 2020- criteria for inferior infarct are no longer present per cardio Chest X-Ray Date: 03/04/24 Findings: + NAD Echocardiogram Date: 06/09/20 EF: 60-65% LV Function: normal RWMA: + none Other Findings: + diastolic dysfunction (Grade I ); no LVH Valvular Disease: + no significant valvular disease Stress Test Date: 06/09/20 Type: nuclear Myocardial perfusion imaging is normal Overall LV systolic function was normal without regional wall motion abnormalities LVEF > 70%
[2024-03-26] MEDS: VANCOMYCIN IV SCH (08:05)
[2024-03-26] MEDS: LACTATED RINGER'S 1,000 ML IV SCH (08:05)
[2024-03-26] MEDS: D5W IV SCH (08:05)
[2024-03-26] MEDS: GABAPENTIN 600 MG DOSE PO SCH (08:06)
[2024-03-26] MEDS: LR 60ML/HR IV SCH (08:06)
[2024-03-26] MEDS: CeleBREX 200 MG CAP PO SCH (08:06)
[2024-03-26] MEDS: ACETAMINOPHEN 500 MG TAB PO SCH (08:06)
[2024-03-26] MEDS ORDERED: MIDAZOLAM HCL 1 MG/ML 2ML VIAL ONE ×2 (08:22)
[2024-03-26] MEDS ORDERED: PROPOFOL IV EMULSION 10 MG/ML 20 ML VIAL IV ONE (08:22)
[2024-03-26] MEDS ORDERED: fentaNYL citrate PF 100 MCG/2 ML VIAL ONE ×2 (08:23→09:40)
[2024-03-26] MEDS ORDERED: DEXAMETHASONE SOD INJ 4 MG/ML VIAL ONE (08:23)
[2024-03-26] MEDS ORDERED: ROCURONIUM BROMIDE 10 MG/ML 5 ML VIAL IV ONE ×2 (08:23→09:41)
[2024-03-26] MEDS ORDERED: ONDANSETRON INJ 2 MG/ML 2 ML VIAL ONE (08:23)
[2024-03-26] MEDS ORDERED: LIDOCAINE 2% 2 ML VIAL/AMP(20MG/ML) INFIL ONE (08:23)
--- NOTE | 2024-03-26 08:50 | History & Physical Bridge Note ---
Date of Service March 26, 2024 History & Physical Bridge Note I have examined the patient, reviewed the History & Physical and in the interval since the performance of the History & Physical I have noted the following changes of clinical significance: no changes noted
--- NOTE | 2024-03-26 08:51 | History & Physical Report ---
Date of Service March 26, 2024 Assessment & Plan (1) Spinal stenosis, lumbar region with neurogenic claudication: Plan: L2-L3 decompression and fusion, hardware removal L3-L4. History of Present Illness Chief Complaint: Back and leg pain Primary Care Provider: Christine Haas PA-C This is a 59-year-old female well-known to us the presents with worsening back and leg pain. Her failing course of nonoperative care she is here for surgical intervention. Allergies Allergy/AdvReac Type Severity Reaction Status Date / Time Iodinated Contrast Media Allergy Unknown IVP Verified 03/26/24 07:50 DYE-HIVES latex Allergy Unknown REACTION Verified 03/26/24 07:50 TO LATEX POWDER ONLY Penicillins Allergy Unknown Patient Verified 03/26/24 07:50 avoids due to Family History strawberry Allergy Unknown HIVES, Verified 03/26/24 07:50 TROUBLE BREATHING Home Medications Medication Instructions Recorded Confirmed Type diphenhydramine HCl 25 mg capsule 25 mg PO UD PRN SEASONAL ALLERGIES 10/08/18 03/26/24 History (Benadryl) fexofenadine 60 mg tablet (Jessica 60 mg PO UD PRN SEASONAL ALLERGIES 10/08/18 03/26/24 History Allergy) hydrochlorothiazide 25 mg tablet 25 mg PO QAM 10/08/18 03/26/24 History pantoprazole 40 mg tablet,delayed 40 mg PO QAM 10/08/18 03/26/24 History release pseudoephedrine HCl 30 mg tablet 30 mg PO UD PRN SEASONAL ALLERGIES 10/08/18 03/26/24 History (Sudafed) acetaminophen 300 mg-codeine 30 mg 1 tab PO Q6H PRN Headache 05/09/20 03/26/24 History tablet citalopram 40 mg tablet 40 mg PO QAM 07/05/23 03/26/24 History cyclosporine 0.05 % eye drops in a 1 drp OPB DAILY 07/05/23 03/26/24 History dropperette (Restasis) diclofenac sodium 75 mg 75 mg PO QAM 07/05/23 03/26/24 History tablet,delayed release lisinopril 10 mg tablet 10 mg PO QAM 07/05/23 03/26/24 History metformin 500 mg tablet,extended 500 - 1,000 mg PO UD 07/05/23 03/26/24 History release 24 hr rosuvastatin 5 mg tablet 5 mg PO QAM 07/05/23 03/26/24 History Past Med/Surg History Problem List Spinal stenosis, lumbar region with neurogenic claudication Encounter for pre-operative examination History of endoscopy History of D&C Hypertension Lower back pain Medical History Acid reflux controlled Anxiety and depression Fatty liver History of anemia HX IRON INFUSIONS X 2 (around 2018); SINCE IMPROVED Hx of migraines Hyperlipidemia Hypertension Osteoarthritis Post herpetic neuralgia left shoulder blade (since 2018) Sleep apnea CPAP Spinal stenosis Type 2 diabetes mellitus NIDDM Surgical History History of carpal tunnel surgery of right wrist History of cholecystectomy History of colonoscopy History of dilation and curettage w/removal uterine polyps History of esophagogastroduodenoscopy (EGD) History of lumbar fusion 2015, L4-L5 2018, L3-L4 and removal hardware L4-L5 History of shoulder surgery right shoulder decompression, 2017 left shoulder biceps tendonesis, 08/2022 History of wisdom tooth extraction Family History Mother Family history of lung cancer Father Family history of rectal cancer Grandfather Family history of breast cancer Other Family history of breast cancer in mother Social History Smoking Status: Former smoker Tobacco Type: Cigarettes Smoking End Date: 1987; Second Hand Exposure: No; Do You Dip or Chew Tobacco: No; Tobacco Cessation Education Requested by Patient: No Hx Alcohol Use: Yes Alcohol type: beer and wine Hx Substance Use: Yes Last Used Substance Other:: many years ago-occasional use only (nothing since ) Preferred Language: Bengali Communication Ability: Effective Visual Impairment: Partially Limited Plastic Bubble Packer Required: No Beliefs That Will Affect Care: None marital status: Current Living Situation: Spouse Other Information That Helps Us Care for You: No Feels Safe at Home: Yes Safety Concerns: Feels Safe At This Time Assistive Devices: CPAP and Glasses Physical Exam Physical Exam: Patient is alert and oriented heart regular rhythm Lungs clear Results & Data Results & Data Vital Signs (Past 12 Hours) Vital Signs Temp Pulse Resp BP Pulse Ox O2 Del Method 03/26/24 07:53 36.8 C 80 18 157/89 H 97 Room Air
[2024-03-26] MEDS: ceFAZolin 2000MG 2,000 MG/15 ML SYR IV SCH ×2 (09:24→17:43)
[2024-03-26] MEDS: BUPIVACAINE/EPINEPHRINE 0.25% 1:200,000 30 ML VIAL ONE (09:52)
[2024-03-26] MEDS: ceFAZolin 330 MG/ML 1 GM VIAL ONE (09:53)
[2024-03-26] MEDS ORDERED: ePHEDrine sulfate 50 MG/5 ML SYR ONE (10:02)
[2024-03-26] MEDS ORDERED: SUGAMMADEX SODIUM 200 MG/2 ML VIAL IV ONE (10:32)
[2024-03-26] MEDS: FLOSEAL HEMOSTATIC MATRIX 10ML TOP ONE (10:42)
--- NOTE | 2024-03-26 10:54 | Operative Report ---
Post Operative Report Pre & Post Diagnosis Operation Date: 03/26/24 09:15 Pre-Op Diagnosis: Foraminal Stenosis of Lumbar Region Post-Op Diagnosis: Foraminal Stenosis of Lumbar Region I identified the patient and participated in the time-out.: Yes Procedure Operation Date: 03/26/24 09:15 Actual Procedures #1 removal of posterior instrumentation L3-L4. #2 exploration of fusion L3-L4. #3 lumbar decompression bilateral medial facetectomies and foraminotomies L2-L3. #4 posterior spinal fusion L2-L3. #5 placement posterior instrumentation L2- L4. #6 interbody fusion L2-L3. #7 placement Spira 12 x 26 mm at L2-L3. #8 placement locally harvested morselized autograft and posterior gutters. #9 placement infuse collagen sponge combined with Koros in the posterior lateral gutters and os design and interbody space. #10 application of versa wrap of the exposed dura. Surgeon Enoch Rosas, DO Medical Or Surgical Instrument Maker Arely Comer Estimated Blood Loss 100 Findings See Below The patient is 5 foot tall weighing over 81 kg with a BMI in excess of 35. Patient's body mass did contribute to significant technical difficulty with positioning exposure and the procedure itself adding these 50% increased operative time. Specimens None Indications This is a 5-year-old female who presents publish diagnosis after failing course of nonoperative care is here for surgical invention. Description of Procedure Patient was met with identified informed consent obtained. Patient was then taken to the operative suite underwent intubation placed in a prone position on the Marcos table on top of the Kishor frame. All bony promises well-padded I suspected to ensure no external pressure placed upon them. This point lumbar spine was prepped and draped in normal sterile fashion. Sharp dissection with assistance above the cartilage from down to and exposing the lamina transverse processes of L2 and instrumentation L3-L4 bilaterally. I then proceeded to move the hardware bilaterally explored the fusion mass noting it to be mature intact. Informed complete laminectomy of L2 including bilateral medial facetectomies and foraminotomies addressing all spinal stenosis. Pedicle screws were placed at L2-L3-L4 bilaterally with the assistance of fluoroscopy and appropriately sized douglas placed. By way of transforaminal approach on the left complete discectomy of L2-L3 was performed endplates guarded to subcortical bleeding bone and a 12 x 26 mm Spira cage filled with os design bone graft tapped in position. The rods were then compressed locked into final position bilaterally. The transverse processes of L2-L3 burred to subcortical bleeding bone. Infuse collagen sponge, with Koros and local autograft placed in the posterior lateral gutters. versa wrap placed over the exposed dura. 15 round JORDY drain inserted. The incision was then closed with 1 Vicryl the fascia 2-0 Vicryl subcutaneously and 4 Monocryl for final skin closure. Steri-Strips sterile dressing placed. Patient waken taken to PACU in stable condition. Please note spinal cord monitoring was utilized no changes noted. Arely Comer was present at the entire procedure and all the patient positioning complex portion of the surgery and final skin closure. Im ordering 20 grams of Triple Lincoln Collagen Powder (Frankly [id number]) to treat an incision wound that was caused by a spine procedure. The incision is approximately 2 cm(W) x 4 cm(L) into the joint (D) in size and is a full thickness wound. Triple Lincoln collagen comes in 1 gram packets so 20 packets were ordered. Given the size of the wound, with light to moderate exudate I chose to order a 20 day supply. The patient will be provided instructions for proper application of the collagen wound kit. The patient will be asked to apply the collagen powder daily and then cover it with sterile dressings dispensed. Collagen was selected as I expect the collagen to attract monocytes and fibroblasts, act as a sacrificial substrate for MMPs, and ultimately proved a matrix for tissue and vessel growth. The collagen will act as a primary dressing in this scenario. It is medically necessary for proper healing of these wounds to improve bioavailability and contact with each wound surface, this is also to help prevent infection of wounds and promote healing ultimately leading to a better healing outcome and limit the risk of infection. I attest to the content of the Intraoperative Record and any orders documented therein. Any exceptions are noted below.
[2024-03-26] MEDS ORDERED: DROPERIDOL 5 MG/2 ML VIAL IV PRN (11:19)
[2024-03-26] MEDS ORDERED: ATROPINE SULFATE 0.1 MG/ML 10ML SYR IV PRN (11:19)
[2024-03-26] MEDS ORDERED: ePHEDrine sulfate 50 MG/ML AMP IV PRN (11:19)
[2024-03-26] MEDS: fentaNYL citrate PF 100 MCG/2 ML VIAL IV PRN (11:26)
--- NOTE | 2024-03-26 11:41 | Fluoroscopy Report ---
FL lumbar spine 2-3V CLINICAL HISTORY: L2-L3 DECOMPRESSION AND FUSION L3-L4 HW REMOVAL COMPARISON STUDY: Lumbar spine MRI February 08, 2024. FLUOROSCOPY TIME: 13 seconds. james Kelley: 9 mGy FLUOROSCOPIC IMAGES: 2 FINDINGS: Fluoroscopy was provided during hardware removal and subsequent L2-L3 decompression with in terbody spacer placement. There are bilateral pedicle screws at the L2, L3 and L4 levels. Previous L3 -L4 and L4-L5 disc spacers are place. IMPRESSION: Fluoroscopy provided during hardware removal and subsequent decompression and fusion, as described above. ACT 112: Negative or not required by law. Electronically signed by: Je Swift M.D. 03/26/2024 11:40 AM
--- OUTSIDE RECORDS SUMMARY | 2024-03-26 12:27 | External Medical Summary | Summary of Care ---
Author Name Unknown Organization [facility] Address [address] [place] [address] Phone [phone] Care Team Providers Care Parts Counter Associate Name Role Phone Christine Haas PA-C Primary Care Provider [phone] Encounter Details Date Type Department Care Team (Late st Contact Info) Description 03/06/[address] [facility] [address] [facility] [place] [address] Christine Haas PA-C [address] [facility] [place] [address] Allergies Active Allergy Reactions Criticality Noted Date Comments Iodinated Contrast Media Hives 05/09/2013 documented as of this encounter (statuses as of 03/06/2024) Medications Medication Sig Dispensed Refills Start Date End Date Status Fexofenadine HCl 180 MG Oral Tablet Take 1 Tablet by mouth in the morning. Active Ibuprofen 200 MG Oral Capsule Take 3 Capsules by mouth every 8 hours as needed. Active CPAP every night at bedtime. Active Dexcom G6 Transmitter Use as directed. Every 3 months 1 Each 10/17/2022 Active Citalopram Hydrobromide 40 MG Oral Tablet (CeleXA) TAKE 1 TABLET EVERY MORNING(DISCONTI NUE CITALOPRAM 20MG TABLETS) 90 Tablet 3 05/08/2023 Active Lisinopril 10 MG Oral Tablet (Prinivil) TAKE 1 TABLET DAILY 90 Tablet 2 08/06/2023 Active cycloSPORINE 0.05 % Ophthalmic Emulsion (Restasis) Active Diclofenac Sodium 75 MG Oral Tablet Delayed Release (Voltaren)Indications :Generalized osteoarthritis TAKE 1 TABLET BY MOUTH EVERY MORNING AND 1 TABLET BY MOUTH BEFORE BEDTIME WITH FOOD 60 Tablet 3 11/19/2023 Active Pantoprazole Sodium 40 MG Oral Tablet Delayed Release (Protonix)Indications :Gastroesophageal reflux disease TAKE 1 TABLET DAILY 90 Tablet 1 11/22/2023 Active hydroCHLOROthiazide 25 MG Oral Tablet (Hydrodiuril) TAKE 1 TABLET DAILY 90 Tablet 1 11/22/2023 Active metFORMIN HCl ER 500 MG Oral Tablet Extended Release 24 Hour (Glucophage XR)Indications:Predia betes take 1 tablet by mouth every morning and 2 tablets by mouth every evening 270 Tablet 1 12/12/2023 Active valACYclovir HCl 1 GM Oral Tablet (Valtrex)Indications: Herpes simplex virus infection 2 tabs now then 2 tabs in 12 hours 8 Tablet 3 12/21/2023 Active Dexcom G7 Sensor Use as directed every 10 days. 9 Each 1 12/24/2023 Active predniSONE 50 MG Oral Tablet (Deltasone)Indication s:Chronic radicular lumbar pain Take one tablet by mouth 13 hours prior to procedure. Take one tablet by mouth one hour prior to procedure. 2 Tablet 12/27/2023 Active diphenhydrAMINE HCl 50 MG Oral Capsule (Benadryl)Indications :Chronic radicular lumbar pain Take one capsule by mouth one hour prior to procedure. 1 Capsule 12/27/2023 Active Rosuvastatin Calcium 5 MG Oral Tablet (Crestor)Indications: Mixed hyperlipidemia Take 1 Tablet by mouth in the morning. 90 Tablet 3 01/03/2024 Active tiZANidine HCl 4 MG Oral Tablet (Zanaflex) Take 1 Tablet by mouth every 8 hours as needed for Muscle spasms. 45 Tablet 02/12/2024 Active Acetaminophen-Codeine 300-30 MG Oral Tablet (Tylenol #3)Indications:Histor y of lumbar fusion Take 1 Tablet by mouth every 6 hours as needed (pain). 30 Tablet 02/14/2024 Active documented as of this encounter (statuses as of 03/06/2024) Active Problems Problem Noted Date Diagnosed Date Obstructive sleep apnea 02/01/2022 Nocturnal hypoxemia 02/01/2022 Type 2 diabetes mellitus with diabetic polyneuro tray 01/02/2022 Type 2 diabetes mellitus wit h hemoglobin A1c goal of less than 7.0% 07/05/2021 History of 2019 novel coronavirus disease (COVID -19) 07/05/2021 Gastroesophageal reflux disease without esophagi tis 12/17/2019 INES (generalized anxiety disorder) 12/17/2019 Post herpetic neuralgia 12/17/2019 History of lumbar fusion 12/17/2019 Iron deficiency anemia due to chronic blood loss 01/23/2018 Uterus, adenomyosis 03/26/2017 HTN, goal below 130/80 10/25/2015 Overview: Per HTN Protocol documented as of this encounter (statuses as of 03/06/2024) Resolved Problems Problem Noted Date Diagnosed Date Resolved Date Prediabetes 05/17/2020 07/05/2021 Hypertension goal BP (blood pressure) < 140/80 10/09/2012 10/28/2015 Overview: Per HTN Protocol Anxiety state 09/06/2009 12/17/2019 documented as of this encounter (statuses as of 03/06/2024) Immunizations Name Administration Dates Next Due COVID-19 mRNA, LNP-s, No Pre serve, 2-Dose Series (Moderna) 09/07/2021,08/16/2020,07/19/2020 Pneumococcal Conjugate Vacci ne, 20-valent ([id number]) 01/02/2022 Seasonal Influenza Vac., MDV , IM, 0.5 mL (Fluzone) 02/17/2014,02/25/2013,03/03/2011,2009,02/25/2009 Seasonal Influenza Virus Vac cine, Unspecified Formulation 01/24/2021 Seasonal Influenza, PF, 6 M & above, IM , (FluLaval or Fluzone) 02/11/2022,01/31/2018 Seasonal Influenza, Quadriva lent, No Preserve, IM 12/27/2019,01/31/2018,02/20/2017,2016,02/25/2015 Seasonal Influenza, Quadriva lent, No Preserve, Mdck 12/27/2018 TD, Preservative Free 03/20/2017 TDAP, Age 7 and older, IM (Adacel) 11/11/2006 Varicella Vaccine (Chicken Pox) 08/01/2006,06/27 Zoster Vaccine Recombinant (Shingrix) 01/30/2019 ,10/15/2018 documented as of this encounter Social History Tobacco Use Types Packs/Day Years Used Date Smoking Tobacco: Former Cigarettes 1 5 0 07/27/1982 - 07/28/1987 Smokeless Tobacco: Never Alcohol Use Standard Drinks/Week Comments Yes 0 (1 standard drink = 0.6 oz pure alcohol) occasional- once or twice per year PHQ-2 Answer Date Recorded PHQ Adult Total Score 1 07/05/2022 Hunger Vital Sign Answer Date Recorded Within the past 12 months, y ou worried that your food would run out before you got the money to buy more. Never true 07/05/19 23 Within the past 12 months, t he food you bought just didn't last and you didn't have money to get more. Never true 07/05/2022 Utilities Answer Date Recorded Do you have trouble paying y our heating, water, or electric bill? (Adult - for ages 18 years and over) Not on file 10/30/2023 Is your family able to pay t he heat, water, or electric bill? (Household - for ages 0-17 years) Not on file 10/30/2023 Does your family have access to good internet? (Household - for ages 0-17 years) Not on file 10/30/2023 Social Connections Answer Date Recorded How often do you feel lonely or isolated from those around you? (Adult - for ages 18 years and over) Not on file 10/30/2023 Sex and Gender Information Value Date Recorded Sex Assigned at Female 07/05/2022 8:40 AM EST Gender Identity Female 07/05/2022 8:40 AM EST Sexual Orientation Straight 07/05/2022 8: 40 AM EST Job Start Date Occupation Industry Not on file Not on file Not on file documented as of this encounter Plan of Treatment Upcoming Encounters Date Type Department Care Team (Late st Contact Info) Description 03/10/2024 1:20 PM EDT Office Visit Family Practice [facility] [address] [place] [address] Mai Wright PA-C [address] [place] [phone] 05/01/2024 8:40 AM EST Office Visit Family Practice [facility] [place] [address] [facility] [address] [place] [address] Christine Haas PA-C [address] [place] [address] 10/31/2024 11:00 AM EDT [facility] [place] [address] [place] [id number] Janae Graham CRNP [address] [place] [address] Scheduled Procedures Name Priority Associated Diagnoses Date/Ti me COLONOSCOPY FLEXIBLE PROXIMAL DIAGNOSTIC Recall Screen for colon cancer Health Maintenance Due Date Last Done Comments HPV/Co-Test 02/20/1994 Cologuard 02/20/2009 Fecal Occult Blood Test 02/20/2009 Sigmoidoscopy 02/20/2009 Cervical Cancer Screening 02/09/2023 Pap Smear 02/09/2023 02/10/2020, 11/2016, 03/20/2017, Additional history exists Depression Screening 07/05/2023 07/05/2022 Albumin/Creatinine Ratio 04/06/2024 04/06/2023, 12/12 GFR 04/06/2024 04/06/2023, 06/15, 07/28/2021, Additional history exists HbA1c 04/29/2024 10/29/2023, 03/15, 07/05/2022, Additional history exists Mammogram 07/12/2024 07/13/2023, 07/12, 07/19/2021, Additional history exists Diabetic Foot Exam 10/30/2024 10/31/2023, 01/02/2022 Diabetic Eye Exam 02/20/2025 2024, , 03/09/2022, Additional history exists Colonoscopy 04/30/2025 04/30/2020, 04/13, 01/17/2018, Additional history exists Colorectal Cancer Screening 04/30/2025 DTap/Tdap Vaccines (3 - Td or Tdap) 03/20/2027 03/20/2017, 11/11/2006 Lipid Panel 04/06/2028 04/06/2023, 04/14, 08/06/2020, Additional history exists Zoster Vaccines Completed 01/30/2019, 10/15/2018 RETIRED - COLONOSCOPY-EVERY 5 YRS AGES 18-100 Discontinued 04/30/2020, 04/30/2020, 01/17/2018, Additional history exists Pneumococcal Vaccine: Pediatrics (0 to 5 Years) and At-Risk Patients (6 to 64 Years) Completed 01/02/2022 COVID-19 Vaccine Completed 01/28/2024, , 08/16/2020, Additional history exists Influenza Vaccine (FLU shot) Completed 01/28/2024, 01/30/2023, 02/11/2022, Additional history exists HPV (Gardasil) Vaccine Aged Out No lo nger eligible based on patient's age to complete this topic Hepatitis B Vaccine Aged Out No longe r eligible based on patient's age to complete this topic MENINGOCOCCAL (MENACTRA/MENVEO) Aged Out No longer eligible based on patient's age to complete this topic documented as of this encounter Medical Devices Implanted Type Area Superintendent Construction Device Identifier Shelf Expiration Date Model / Serial / Lot Kit Loop N Wing Biceps 3.9mm - [id number] Implanted:Qty: 1 on 08/25/2022 by Remi Kelly, at [facility] Left: Shoulder [employer] 12/12/2023 [id number]-39 / / [id number] documented as of this encounter Procedures Procedure Name Priority Date/Time Associated Diagnosis Comments DIABETIC EYE EXAM Routine 2024 documented in this encounter Results * DIABETIC EYE EXAM (2024) 2024 Dena Langley OD OTH ER OUTSIDE LAB (SEE SCANNED REPORT) documented in this encounter Advance Directives * Full Code (Latest Code Status on File) Date Activated Date Inactivated Comments 08/25/2022 11:25 AM 08/25/2022 4:41 PM This order reflects the patients wishes and were consensually agreed upon. Question Answer Comments Discussion of Advance Directives occurred with: Patient Care Teams Parts Counter Associate Relationship Specialty Start Date End Date WaldoAugust Pavel, MANE [address] [place] [address] PCP - General Physician Medic Technician 11/03/16 documented as of this encounter
--- OUTSIDE RECORDS SUMMARY | 2024-03-26 12:27 | External Medical Summary | Summary of Care ---
Author Name Unknown Organization [facility] Address [address] [place] [address] Phone [phone] Care Team Providers Care Bit Bender Name Role Phone MikaylaChristine panda Pavel GILLIAM Primary Care Provider [phone] Reason for Visit * Reason Comments pre-op exam Encounter Details Date Type Department Care Team (Late st Contact Info) Description 03/10/2024 1:20 PM EDT Office Visit Family Practice [facility] [address] [facility] [place] [address] Mai Wright PA-C [address] [facility] [place] [address] Pre-operative examination*; Acute cystitis with hematuria; Type 2 diabetes mellitus with hemoglobin A1c goal of less than 7.0% ([facility]); Type 2 diabetes mellitus with diabetic polyneuropathy, unspecified whether buttermaker helper insulin use ([facility]); Obstructive sleep apnea; Nocturnal hypoxemia; HTN, goal below 130/80; Gastroesophageal reflux disease without esophagitis; INES (generalized anxiety disorder); Severe obesity with body mass index (BMI) of 35.0 to 39.9 with serious comorbidity ([facility]) Allergies Active Allergy Reactions Criticality Noted Date Comments Iodinated Contrast Media Hives 05/09/2013 documented as of this encounter (statuses as of 03/10/2024) Medications Medication Sig Dispensed Refills Start Date End Date Status Fexofenadine HCl 180 MG Oral Tablet Take 1 Tablet by mouth in the morning. Active Ibuprofen 200 MG Oral Capsule Take 3 Capsules by mouth every 8 hours as needed. Active CPAP every night at bedtime. Active Dexcom G6 Transmitter Use as directed. Every 3 months 1 Each 3 Active Citalopram Hydrobromide 40 MG Oral Tablet (CeleXA) TAKE 1 TABLET EVERY MORNING(DISCONT INUE CITALOPRAM 20MG TABLETS) 90 Tablet 3 3 Active Lisinopril 10 MG Oral Tablet (Prinivil) TAKE 1 TABLET DAILY 90 Tablet 2 4 Active cycloSPORINE 0.05 % Ophthalmic Emulsion (Restasis) Active Diclofenac Sodium 75 MG Oral Tablet Delayed Release (Voltaren)Indicatio ns:Generalized osteoarthritis TAKE 1 TABLET BY MOUTH EVERY MORNING AND 1 TABLET BY MOUTH BEFORE BEDTIME WITH FOOD 60 Tablet 3 4 Active Pantoprazole Sodium 40 MG Oral Tablet Delayed Release (Protonix)Indicatio ns:Gastroesophageal reflux disease TAKE 1 TABLET DAILY 90 Tablet 1 4 Active hydroCHLOROthiazide 25 MG Oral Tablet (Hydrodiuril) TAKE 1 TABLET DAILY 90 Tablet 1 4 Active metFORMIN HCl ER 500 MG Oral Tablet Extended Release 24 Hour (Glucophage XR)Indications:Pred iabetes take 1 tablet by mouth every morning and 2 tablets by mouth every evening 270 Tablet 1 4 Active valACYclovir HCl 1 GM Oral Tablet (Valtrex)Indication s:Herpes simplex virus infection 2 tabs now then 2 tabs in 12 hours 8 Tablet 3 4 Active Dexcom G7 Sensor Use as directed every 10 days. 9 Each 1 4 Active diphenhydrAMINE HCl 50 MG Oral Capsule (Benadryl)Indicatio ns:Chronic radicular lumbar pain Take one capsule by mouth one hour prior to procedure. 1 Capsule 4 Active Rosuvastatin Calcium 5 MG Oral Tablet (Crestor)Indication s:Mixed hyperlipidemia Take 1 Tablet by mouth in the morning. 90 Tablet 3 4 Active tiZANidine HCl 4 MG Oral Tablet (Zanaflex) Take 1 Tablet by mouth every 8 hours as needed for Muscle spasms. 45 Tablet 4 Active Acetaminophen-Codei ne 300-30 MG Oral Tablet (Tylenol #3)Indications:Hist ory of lumbar fusion Take 1 Tablet by mouth every 6 hours as needed (pain). 30 Tablet 4 Active Cholecalciferol 125 MCG (5000 UT) Oral Capsule (Dialyvite Vitamin D 5000) Take 1 Capsule by mouth in the morning and 1 Capsule before bedtime. Active Nitrofurantoin Monohyd Macro 100 MG Oral Capsule (Macrobid)Indicatio ns:Acute cystitis with hematuria Take 1 Capsule by mouth in the morning and 1 Capsule before bedtime. Do all this for 7 days. With food until gone. 14 Capsule 4 03/17/20 24 Active predniSONE 50 MG Oral Tablet (Deltasone)Indicati ons:Chronic radicular lumbar pain Take one tablet by mouth 13 hours prior to procedure. Take one tablet by mouth one hour prior to procedure. 2 Tablet 4 03/10/20 24 Discontinued documented as of this encounter (statuses as of 03/10/2024) Active Problems Problem Noted Date Diagnosed Date [...] as of this encounter (statuses as of 03/10/2024) Resolved Problems Problem Noted Date Diagnosed Date Resolved Date Prediabetes 05/17/2020 07/05/2021 Hypertension goal BP (blood pressure) < 140/80 10/09/2012 10/28/2015 Overview: Per HTN Protocol Anxiety state 09/06/2009 12/17/2019 documented as of this encounter (statuses as of 03/10/2024) Immunizations Name Administration Dates Next Due COVID-19 mRNA, LNP-s, No Pre serve, 2-Dose Series (Moderna) 09/07/2021,08/16/2020,07/19/2020 Pneumococcal Conjugate Vacci ne, 20-valent ([id number]) 01/02/2022 Seasonal Influenza Vac., MDV , IM, [...] on file documented as of this encounter Last Filed Vital Signs Vital Sign Reading Time Taken Comments Blood Pressure 110/62 03/10/2024 1:18 PM EDT Pulse 78 03/10/2024 1:18 PM EDT Temperature 36.7 C (98 F) 03/10/2024 1:18 PM EDT Respiratory Rate 16 03/10/2024 1:18 PM EDT Oxygen Saturation - - Inhaled Oxygen Concentration - - Weight 81.6 kg (180 lb) 03/10/2024 1:18 PM EDT Height 152.4 cm (5') 03/10/2024 1:18 PM EDT Body Mass Index 35.15 03/10/2024 1:18 PM EDT documented in this encounter Progress Notes * Mai Wright PA-C - 03/10/2024 1:40 PM EDT Images from the original note were not included. Pre-Operative Medical Evaluation Procedure Information Type of Surgery: spinal fusion, L2-L3 Referring Physician / Surgeon: Dr. Rosas- [facility] Date of procedure: 03/26/2024 Brief History of Present Illness: Third spinal fusion Had urine culture at [facility] that showed +4 bacteria, 21-50 WBC, +2 est. Unknown if culture was completed, not available at the time of review. No treatment initiated. Pt reports no symptoms at this time, but will err on the side of caution due to upcoming procedure and treat. Review of Systems: Constitutional ROS: No change in weight, No weakness, No fatigue, and No fevers, sweats, or chills Eye ROS: No recent significant change in vision, No eye pain, redness, discharge, No diplopia, No h/o cataracts, and No h/o glaucoma Ear ROS: No ear pain, No drainage, No tinnitus or vertigo, and No recent change in hearing Nose ROS: No history of frequent colds or sinusitis, No nasal stuffiness, No history of Hay Fever, and No significant epistaxis Mouth/Throat ROS: No bleeding gums, No thrush, or No sore throat Neck ROS: No lumps or masses, No swollen glands, No recent swelling in thyroid area, No significantpain in neck, and No h/o goiter or thyroid disease Pulmonary ROS: No cough, sputum, or hemoptysis, No wheezing, No rales, No shortness of breath, and No recent change in breathing Cardiovascular ROS: No chest pain, No shortness of breath, No dyspnea on exertion, No orthopnea, Noparoxysmal nocturnal dyspnea, No edema, No palpitations, and No syncope Gastrointestinal ROS: No abdominal pain, No change in bowel habits, No significant heartburn, No significant change in appetite, No nausea, vomiting, diarrhea, or constipation, No hematemesis, No blood in stools or black tarry stools, No abdominal bloating or early satiety, and No dysphagia Genito-Urinary Female ROS: No STDs, No dysuria, No frequency, No incontinence, No irregular menstruation, No urgency, and No vaginal discharge Musculoskeletal/Extremities ROS: No pain, redness or swelling on the joints Hematologic/Lymphatic ROS: No coagulation disorder, No anemia, No abnormal bleeding, No chills, No bruising, No HIV risk factors, No night sweats, No swollen nodes, No weight loss, and No history of transfusion Skin/Integumentary ROS: No edema, No rash, and No itching Neurologic ROS: Normal balance, No headaches, No seizures, and No weakness Psychiatric ROS: No depression, No anxiety, and No psychosis Medical History Problem List: Obstructive sleep apnea (02/01/2022) Nocturnal hypoxemia (02/01/2022) Type 2 diabetes mellitus with diabetic polyneuropathy (HCC) (2021) Type 2 diabetes mellitus with hemoglobin A1c goal of less than 7.0% ([facility]) (07/05/2021) History of 2019 novel coronavirus disease (COVID-19) (07/05/2021) Prediabetes (05/17/2020) Gastroesophageal reflux disease without esophagitis (12/17/2019) INES (generalized anxiety disorder) (12/17/2019) Post herpetic neuralgia (12/17/2019) History of lumbar fusion (12/17/2019) Iron deficiency anemia due to chronic blood loss (01/23/2018) Uterus, adenomyosis (03/26/2017) HTN, goal below 130/80 (10/25/2015) Hypertension goal BP (blood pressure) < 140/80 (10/09/2012) Anxiety state (09/06/2009) Current Medications Cholecalciferol 125 MCG (5000 UT) Oral Capsule (Dialyvite Vitamin D 5000), 5,000 Units, Oral, BID(AM/PM) Nitrofurantoin Monohyd Macro 100 MG Oral Capsule (Macrobid), 100 mg, Oral, BID(AM/PM) Acetaminophen-Codeine 300-30 MG Oral Tablet (Tylenol #3), 1 Tablet, Oral, Q6H PRN tiZANidine HCl 4 MG Oral Tablet (Zanaflex), 4 mg, Oral, Q8H PRN Rosuvastatin Calcium 5 MG Oral Tablet (Crestor), 5 mg, Oral, Daily(AM) diphenhydrAMINE HCl 50 MG Oral Capsule (Benadryl), Take one capsule by mouth one hour prior to procedure. Dexcom G7 Sensor, Use as directed every 10 days. valACYclovir HCl 1 GM Oral Tablet (Valtrex), 2 tabs now then 2 tabs in 12 hours metFORMIN HCl ER 500 MG Oral Tablet Extended Release 24 Hour (Glucophage XR), take 1 tablet by mouth every morning and 2 tablets by mouth every evening hydroCHLOROthiazide 25 MG Oral Tablet (Hydrodiuril), TAKE 1 TABLET DAILY Pantoprazole Sodium 40 MG Oral Tablet Delayed Release (Protonix), TAKE 1 TABLET DAILY Diclofenac Sodium 75 MG Oral Tablet Delayed Release (Voltaren), TAKE 1 TABLET BY MOUTH EVERY MORNING AND 1 TABLET BY MOUTH BEFORE BEDTIME WITH FOOD cycloSPORINE 0.05 % Ophthalmic Emulsion (Restasis), Lisinopril 10 MG Oral Tablet (Prinivil), TAKE 1 TABLET DAILY Citalopram Hydrobromide 40 MG Oral Tablet (CeleXA), TAKE 1 TABLET EVERY MORNING(DISCONTINUE CITALOPRAM 20MG TABLETS) Dexcom G6 Transmitter, Use as directed. Every 3 months CPAP, every night at bedtime. Ibuprofen 200 MG Oral Capsule, 600 mg, Oral, Q8H PRN Fexofenadine HCl 180 MG Oral Tablet, 180 mg, Oral, Daily(AM) Allergies: Iodinated contrast media Past Medical History: has a past medical history of BRCA1 gene mutation negative, BRCA2 gene mutation negative, INES (generalized anxiety disorder) (12/17/2019), Gastroesophageal reflux disease without esophagitis (12/17/2019), History of 2019 novel coronavirus disease (COVID-19) (07/05/2021), History of lumbar fusion (), INFORMATION, INFORMATION, Migraine, Post herpetic neuralgia (12/17/2019), and Sleep apnea, obstructive. Past Surgical History: has a past surgical history that includes dilation and curettage (d&c) (2006); dental surgery procedure nec; Colonoscopy, Diagnostic (Rectum) (10/23/2014); carpal tunnel surgery (06/2015); Sacroiliac Joint Inject w/Guidance (11/01/2015); Spinal Fusion, Lumbar, Combined (01/2016); shoulder arthro scopy/decompression (Right, 10/2016); Colonoscopy, Diagnostic (Rectum) (01/17/2018); EGD, Flexible,Diagnostic (01/17/2018); Hysteroscopy w/Biopsy and/or Polypectomy w/wo D&C (04/15/2020); Colonoscopy, Diagnostic (Rectum) (04/30/2020); knee arthroscopy/debridement (Left, 08/01/2021); knee arthros copy/meniscectomy (Left, 08/01/2021); shoulder arthroscopy/decompression (Left, 08/25/2022); artho,shoul,w/rotator cuff (Left, 08/25/2022); Inject Dx/Ther Substance Interlaminar Lumbar/Sacral W Image Guide (06/01/2023); and Inject Dx/Ther Substance Interlaminar Lumbar/Sacral W Image Guide (12/28/2023). Social History: reports that she quit smoking about 36 years ago. Her smoking use included cigarettes. She started smoking about 41 years ago. She has a 5 pack-year smoking history. She has never used smokeless tobacco. She reports current alcohol use. She reports that she does not use drugs. Family History: family history includes Breast Cancer in her grandfather (maternal); Breast Cancer (age of onset: 39) in her mother; Cancer in her mother; Cancer (age of onset: 83) in her father; Heart Disorder in her father; Heart disease in her father; Hypertension in her father; No Past Hx in her brother and brother; Stroke in her grandfather (paternal); pmdd in her daughter; polycystic ovasrian syndrome in her daughter; psoriatic arthtis in her brother. Anesthesia History Type of Anesthesia: General Endotracheal Anesthesia reaction: No History of surgical complications: No Personal history of venous thromboembolic disease: No Physical Exam Vitals: 03/10/24 1318 Temp: 36.7 C (98 F) Pulse: 78 Resp: 16 BP: 110/62 BMI: 35.15 BP 110/62 | Pulse 78 | Temp 36.7 C (98 F) | Resp 16 | Ht 1.524 m (5') | Wt 81.6 kg (180 lb) | LMP 12/24/2017 | BMI 35.15 kg/m | BSA 1.86 m General: alert, healthy, and no distress Head: Normocephalic, No masses, lesions, tenderness or abnormalities Eye Exam: PERRLA, extraocular movements intact, conjunctiva are pink and non- injected, sclera clear Ears: External ears normal, Canals clear, TM's Normal Nose: no mucosal erythema, no mucosal edema, no purulent discharge Oropharynx: no exudate, no erythema, lips, buccal mucosa, and tongue normal, and mucous membranes are moist Neck: supple, no adenopathy, no bruits, thyroid normal size, non-tender, without nodularity Heart: regular rate & rhythm, no murmur, and no gallops Lungs: chest symmetric with normal AP diameter, no chest deformities noted, no chest wall tenderness, lungs clear to auscultation Abdomen: abdomen soft, non-tender, normal bowel sounds, and no masses or organomegaly Extremities: less than 2 second capillary refill, no joint deformities, effusion, or inflammation Neuro Exam: alert & oriented x 3 with fluent speech, no focal motor/sensory deficits, gait normal, reflexes normal and symmetric Skin: skin color, texture, turgor are normal, no rashes or significant lesions Labs reviewed and are significant for: probably UTI EKG by my review is significant for: no new changes Surgical Risk Scoring Revised Cardiac Risk Index (RCRI) High-risk type of surgery (examples include vascular and any open intraperitoneal or intrathoracic procedures): 0=No History of ischemic heart disease (history of myocardial infarction or positive exercise test, current compliant of chest pain considered to be secondary to myocardia ischemia, use of nitrate therapy, or ECG with pathological Q waves; do not count prior coronary revascularization procedure unless one of the other criteria for ischemic heart disease is present): 0=No History of heart failure: 0=No History of cerebrovascular disease: 0=No Diabetes mellitus requiring treatment with insulin: 0=No Preoperative serum creatinine >2.0 mg/dL (177 micromol/L): 0=No Pt has revised cardiac index score of: No Risk Factors- 0.4% (95% CI: 0.1-0.8) Screening for Obstructive Sleep Apnea (STOP-BANG) Deferred- has sleep apnea, uses CPAP machine Assessment and Plan Pre-operative examination Acute cystitis with hematuria GFR 57 on pre-op labs, creat 1.16, per UpToDate, short term use of Macrobid with GFR between 30 and60 is OK - Nitrofurantoin Monohyd Macro 100 MG Oral Capsule (Macrobid); Take 1 Capsule by mouth in the morning and 1 Capsule before bedtime. Do all this for 7 days. With food until gone. Type 2 diabetes mellitus with hemoglobin A1c goal of less than 7.0% (HCC) Type 2 diabetes mellitus with diabetic polyneuropathy, unspecified whether correction insulin use (HCC) Obstructive sleep apnea Nocturnal hypoxemia HTN, goal below 130/80 Gastroesophageal reflux disease without esophagitis INES (generalized anxiety disorder) Severe obesity with body mass index (BMI) of 35.0 to 39.9 with serious comorbidity (HCC) Functional Assessment They are able to walk up a flight of stairs, walk two blocks at a moderate pace, do heavy house work like vacuuming, and grocery shop. The patient's functional status is good (greater than 4 METS). 1 MET: 4 METs: 4-10 METs: Can take care of self, such as eat, dress or use the toilet. Can walk to block or go up a flight of steps. Can do heavy house work. Surgical Risk Assessment Patient is low medical risk for the listed procedure. Medication adjustments: As per surgeon and anesthesia Additional consults or testing: None documented in this encounter Nursing Notes * Yesica Ware LPN - 03/10/2024 1:18 PM EDT The patient has been properly identified by confirmation of name and date of . Chief Complaint Patient presents with pre-op exam documented in this encounter Plan of Treatment Upcoming Encounters Date Type Department Care Team (Late st Contact Info) Description 05/01/2024 8:40 AM EST Office Visit Family Practice [facility] [address] [facility] [place] [address] Christine Haas PA-C [address] [facility] [place] [address] 10/31/2024 11:00 AM EDT Telemedicine [facility] [address] [place] [id number] Janae Graham CRNP [address] [place] [address] Scheduled Procedures Name Priority Associated Diagnoses Date/Ti me COLONOSCOPY FLEXIBLE PROXIMAL DIAGNOSTIC Recall Screen for colon cancer Health Maintenance Due Date Last Done Comments HPV/Co-Test 02/20/1994 Cologuard 02/20/2009 Fecal Occult Blood Test 02/20/2009 Sigmoidoscopy 02/20/2009 Cervical Cancer Screening 02/09/2023 Pap Smear 02/09/2023 02/10/2020, 1111/2016, 03/20/2017, Additional history exists Depression Screening 07/05/2023 07/05/2022 Albumin/Creatinine Ratio 04/06/2024 04/06/2023, 12/12 Mammogram 07/12/2024 07/13/2023, 07/12, 07/19/2021, Additional history exists HbA1c 09/02/2024 03/04/2024, 10/12, 04/06/2023, Additional history exists Diabetic Foot Exam 10/30/2024 10/31/2023, 01/02/2022 Diabetic Eye Exam 02/20/2025 2024, , 03/09/2022, Additional history exists GFR 03/04/2025 03/04/2024, 03/15, 07/05/2022, Additional history exists Colonoscopy 04/30/2025 04/30/2020, 04/13, [...] this encounter Medical Devices Implanted Type Area Medical Case Manager Device Identifier Shelf Expiration Date Model / Serial / Lot Kit Loop N Wing Biceps 3.9mm - [id number] Implanted:Qty: 1 on 08/25/2022 by Remi Kelly, DO at OR [facility] Left: Shoulder [employer] 12/12/2023 [id number] L-39 / / [id number] documented as of this encounter Visit Diagnoses Diagnosis Pre-operative examination- Primary Preoperative examination, unspecified Acute cystitis with hematuria Acute cystitis Type 2 diabetes mellitus with hemoglobin A1c goal of less than 7.0% (HCC) Type 2 diabetes mellitus with diabetic polyneuropathy, unspecified whether buttermaker helper insulin use (HCC) Obstructive sleep apnea Obstructive sleep apnea (adult) (pediatric) Nocturnal hypoxemia Hypoxemia HTN, goal below 130/80 Unspecified essential hypertension Gastroesophageal reflux disease without esophagitis Esophageal reflux INES (generalized anxiety disorder) Generalized anxiety disorder Severe obesity with body mass index (BMI) of 35.0 to 39.9 with serious comorbidity (HCC) documented in this encounter Advance Directives * Full Code (Latest Code Status on File) Date Activated Date Inactivated Comments 08/25/2022 11:25 AM 08/25/2022 4:41 PM This order reflects the patients wishes and were consensually agreed upon. Question Answer Comments Discussion of Advance Directives occurred with: Patient Care Teams Bit Bender Relationship Specialty Start Date End Date Waldo August MANE Zhao [facility] [place][note 2] [place] [address] PCP - General Physician Farm Machinery Erector 11/03/16 documented as of this encounter"
--- OUTSIDE RECORDS SUMMARY | 2024-03-26 12:27 | External Medical Summary | Summary of Care ---
Author Name Unknown Organization [facility] Address [address] [place] [address] Phone [phone] Care Team Providers Care Wildlife Conservation Professor Name Role Phone Christine Haas MANE Primary Care Provider [phone] Encounter Details Date Type Department Care Team (Late st Contact Info) Description 03/04/2024 Result Scan Unspecified Department <No scans attached> Allergies Active Allergy Reactions Criticality Noted Date [...] (Moderna) 09/07/2021,08/16/2020,07/19/2020 Pneumococcal Conjugate Vacci ne, 20-valent ([id number]) 01/02/2022 Seasonal Influenza Vac., MDV , IM, [...] Description 03/10/2024 1:20 PM EDT Office Visit [facility] [address] [place] [address] Mai Wright PA-C [address] [place] [address] 05/01/2024 8:40 AM EST [facility] [place] [address] [place] [address] Christine Haas PA-C [address] [place] [facility] [place] [address] 10/31/2024 11:00 AM EDT [facility] [address] [place] [phone] Janae Graham CRNP [address] [place] [address] Scheduled Procedures Name Priority Associated Diagnoses Date/Ti me COLONOSCOPY FLEXIBLE PROXIMAL DIAGNOSTIC Recall Screen for colon cancer Health Maintenance Due Date Last Done Comments HPV/Co-Test 02/20/1994 Cologuard 02/20/2009 Fecal Occult Blood Test 02/20/2009 Sigmoidoscopy 02/20/2009 Cervical Cancer Screening 02/09/2023 Pap Smear 02/09/2023 02/10/2020, 11/2016, 03/20/2017, Additional history exists Depression Screening 07/05/2023 07/05/2022 Albumin/Creatinine Ratio 04/06/2024 04/06/2023, 12/12 GFR 04/06/2024 03/04/2024, 03/15, 07/05/2022, Additional history exists HbA1c 04/29/2024 03/04/2024, 10/12, 04/06/2023, Additional history exists Mammogram 07/12/2024 07/13/2023, 07/12, [...] this encounter Medical Devices Implanted Type Area Jacquard Loom Heddles Tier Device Identifier Shelf Expiration Date Model / Serial / Lot Kit Loop N Wing Biceps 3.9mm - [id number] Implanted:Qty: 1 on 08/25/2022 by Remi Kelly, at OR [facility] Left: Shoulder [employer] 12/12/2023 [id number] L-39 / / [id number] documented as of this encounter Procedures Procedure Name Priority Date/Time Associated Diagnosis Comments EKG SCANNED RESULT 03/04/2024 documented in this encounter Results * EKG SCANNED RESULT (03/04/2024) 03/04/2024 No Physician Data Unknown EKG documented in this encounter Advance Directives * Full Code (Latest Code Status on File) Date Activated Date Inactivated Comments 08/25/2022 11:25 AM 08/25/2022 4:41 PM This order reflects the patients wishes and were consensually agreed upon. Question Answer Comments Discussion of Advance Directives occurred with: Patient Care Teams Wildlife Conservation Professor Relationship Specialty Start Date End Date Waldo Christine MANE Zhao [facility] [place] [address] PCP - General Physician Life Coach 11/03/16 documented as of this encounter
--- OUTSIDE RECORDS SUMMARY | 2024-03-26 12:27 | External Medical Summary | Summary of Care ---
Author Name Unknown Organization [facility] Address [address] [place] [address] Phone [phone] Care Team Providers Care Barrel Brander Name Role Phone Christine Haas PA-C Primary Care Provider [phone] Encounter Details Date Type Department Care Team (Late st Contact Info) Description 03/10/2024 Orders Only Family Practice [facility] [address] [facility] [place] [address] Christine Haas PA-C [address] [facility] [place] [address] Allergies Active Allergy Reactions Criticality Noted Date [...] (Moderna) 09/07/2021,08/16/2020,07/19/2020 Pneumococcal Conjugate Vacci ne, 20-valent ([id number]) 01/02/2022 Seasonal Influenza Vac., MDV , IM, [...] State Darlene Menon [address] [place] [address] Mai Wright PA-C [address] [place] [address] 05/01/2024 8:40 AM EST Office Visit Family Practice [facility] [place] [address] [facility] [place] [address] Christine Haas PA-C [address] [place] [address] 10/31/2024 11:00 AM EDT Telemedicine [facility] [place] [address] [place] [phone] Janae Graham CRNP [address] [place] [address] Scheduled Procedures Name Priority Associated Diagnoses Date/Ti [...] this encounter Medical Devices Implanted Type Area Head Inspector Device Identifier Shelf Expiration Date Model / Serial / Lot Kit Loop N Wing Biceps 3.9mm - [id number] Implanted:Qty: 1 on 08/25/2022 by Remi Kelly, DO at [facility] Left: Shoulder [employer] 12/12/2023 [id number] L-39 / / [id number] documented as of this encounter Procedures Procedure Name Priority Date/Time Associated Diagnosis Comments XR CHEST 2 VIEWS Routine 03/04/2024 CHEMISTRY-OUTSIDE Routine 03/04/2024 CHEMISTRY-OUTSIDE Routine 03/04/2024 documented in this encounter Results * (ABNORMAL) CHEMISTRY-OUTSIDE (03/04/2024) Not all results display below - see scan for full detail OUTSIDE LAB (SEE SCANNED REPORT) Comment:SCAN INCLUDES - BMP, CBCD, UA, PT INR, PTT CREATININE 1.16 0.6 - 1.2 MG/DL OUTSIDE LAB (SEE SCANNED REPORT) EGFR 53.97 OUTSIDE LA B (SEE SCANNED REPORT) POTASSIUM 3.7 3.5 - 5.1 MMOL/L OUTSIDE LAB (SEE SCANNED REPORT) GLUCOSE 122(A) 70 - 99 MG/DL OUTSIDE LAB (SEE SCANNED REPORT) HOURS FASTING OUTSID E LAB (SEE SCANNED REPORT) TRIGLYCERIDES-OU TSIDE LAB OUTSIDE LAB (SEE SCANNED REPORT) CHOLESTEROL-OUTS EBONY LAB OUTSIDE LAB (SEE SCANNED REPORT) HDL-OUTSIDE LAB OUTS EBONY LAB (SEE SCANNED REPORT) CHOL/HDL RATIO-OUTSIDE LAB OUTSIDE LAB (SEE SCANNED REPORT) LDL (CALCULATED)-OUT SIDE LAB OUTSIDE LAB (SEE SCANNED REPORT) LDL (DIRECT MEASURE)-OUTSIDE LAB OUTSIDE LAB (SEE SCANNED REPORT) HEMOGLOBIN, P2T-CZBELVB LAB OUTSIDE LAB (SEE SCANNED REPORT) PHOSPHORUS-OUTSI DE LAB OUTSIDE LAB (SEE SCANNED REPORT) PTH-OUTSIDE LAB OUTS EBONY LAB (SEE SCANNED REPORT) MICROALBUMIN RATIO-OUTSIDE LAB OUTSIDE LAB (SEE SCANNED REPORT) PROTEIN, UA-OUTSIDE LAB NEGATIVE NEGATIVE OUTSIDE LAB (SEE SCANNED REPORT) HGB 12.5 12.0 - 16.0 G/DL OUTSIDE LAB (SEE SCANNED REPORT) 03/04/2024 Enoch Rosas DO LABORATORY OUTSIDE LAB (SEE SCANNED REPORT) * (ABNORMAL) CHEMISTRY-OUTSIDE (03/04/2024) Not all results display below - see scan for full detail OUTSIDE LAB (SEE SCANNED REPORT) Comment:SCAN INCLUDES - A1C CREATININE OUTSIDE L AB (SEE SCANNED REPORT) EGFR OUTSIDE LA B (SEE SCANNED REPORT) POTASSIUM OUTSIDE LA B (SEE SCANNED REPORT) GLUCOSE OUTSIDE LA B (SEE SCANNED REPORT) HOURS FASTING OUTSID E LAB (SEE SCANNED REPORT) TRIGLYCERIDES-OUT SIDE LAB OUTSIDE LAB (SEE SCANNED REPORT) CHOLESTEROL-OUTSI DE LAB OUTSIDE LAB (SEE SCANNED REPORT) HDL-OUTSIDE LAB OUTS EBONY LAB (SEE SCANNED REPORT) CHOL/HDL RATIO-OUTSIDE LAB OUTSIDE LA B (SEE SCANNED REPORT) LDL (CALCULATED)-OUTS EBONY LAB OUTSIDE LAB (SEE SCANNED REPORT) LDL (DIRECT MEASURE)-OUTSIDE LAB OUTSIDE LAB (SEE SCANNED REPORT) HEMOGLOBIN, [id number]-[id number] LAB 6.3(A) 4.5 - 5.6 % OUTSIDE LAB (SEE SCANNED REPORT) PHOSPHORUS-OUTSID E LAB OUTSIDE LAB (SEE SCANNED REPORT) PTH-OUTSIDE LAB OUTS EBONY LAB (SEE SCANNED REPORT) MICROALBUMIN RATIO-OUTSIDE LAB OUTSIDE LA B (SEE SCANNED REPORT) PROTEIN, UA-OUTSIDE LAB OUTSIDE LAB (SEE SCANNED REPORT) HGB OUTSIDE LA B (SEE SCANNED REPORT) 03/04/2024 Bianca Carmona PA-C LABORATORY OUTSIDE LAB (SEE SCANNED REPORT) * XR CHEST 2 VIEWS (03/04/2024) Anatomical Region Laterality Modality Chest Other 03/04/2024 Enoch Rosas DO RADIOLOGY ( RAD GENERAL) documented in this encounter Advance Directives * Full Code (Latest Code Status on File) Date Activated Date Inactivated Comments 08/25/2022 11:25 AM 08/25/2022 4:41 PM This order reflects the patients wishes and were consensually agreed upon. Question Answer Comments Discussion of Advance Directives occurred with: Patient Care Teams Barrel Brander Relationship Specialty Start Date End Date Christine Haas PA-C [address] [place] [address] PCP - General Physician Sanitary Chemist 11/03/16 documented as of this encounter
--- OUTSIDE RECORDS SUMMARY | 2024-03-26 12:27 | External Medical Summary | Summary of Care ---
Author Name Unknown Organization [facility] Address [address] [place] [address] Phone [phone] Care Team Providers Care Divinity Teacher Name Role Phone Christine Haas MANE Primary Care Provider [phone] Reason for Visit * Reason Onset Date Comments Fax 12/18/2023 Encounter Details Date Type Department Care Team (Late st Contact Info) Description 12/18/2023 Telephone Access Center, [place] [address] [facility] *DO NOT REMOVE THIS DEPARTMENT* [place] [address] Services, Scheduling [address] [place] [address] Fax Allergies Active Allergy Reactions Criticality Noted Date Comments Iodinated Contrast Media Hives 05/09/2013 documented as of this encounter (statuses as of 03/18/2024) Medications Medication Sig Dispensed Refills Start Date [...] every evening 270 Tablet 1 12/12/2023 Active documented as of this encounter (statuses as of 03/18/2024) Active Problems Problem Noted Date Diagnosed Date [...] as of this encounter (statuses as of 03/18/2024) Resolved Problems Problem Noted Date Diagnosed Date Resolved Date Prediabetes 05/17/2020 07/05/2021 Hypertension goal BP (blood pressure) < 140/80 10/09/2012 10/28/2015 Overview: Per HTN Protocol Anxiety state 09/06/2009 12/17/2019 documented as of this encounter (statuses as of 03/18/2024) Immunizations Name Administration Dates Next Due COVID-19 mRNA, LNP-s, No Pre serve, 2-Dose Series (Moderna) 09/07/2021,08/16/2020,07/19/2020 Pneumococcal Conjugate Vacci ne, 20-valent ([id number]) 01/02/2022 Seasonal Influenza Vac., MDV , IM, [...] on file documented as of this encounter Miscellaneous Notes * Telephone Encounter - Cass Yee OSA - 12/18/2023 11:20 AM EDT Caller requesting the following information to be faxed: Name/Company of caller: [facility] Information requested to be faxed: Last Office Notes; 07/17/23 Fax number: [phone] Attention to Name/Company: [facility] Any additional information?: Faxed via [employer] documented in this encounter Plan of Treatment Upcoming Encounters Date Type Department Care Team (Late st Contact Info) Description 05/01/2024 8:40 AM EST Office Visit Family Practice [facility] [address] [facility] [place] [address] Christine Haas PA-C [address] [facility] [place] [address] 10/31/2024 11:00 AM EDT Telemedicine Sleep Disorders Ctr [facility] [address] [place] [phone] Janae Graham CRNP [address] [place] [address] Scheduled Procedures Name Priority Associated Diagnoses Date/Ti me COLONOSCOPY FLEXIBLE PROXIMAL DIAGNOSTIC Recall Screen for colon cancer Health Maintenance Due Date Last Done Comments HPV/Co-Test 02/20/1994 Cologuard 02/20/2009 Fecal Occult Blood Test 02/20/2009 Sigmoidoscopy 02/20/2009 Cervical Cancer Screening 02/09/2023 Pap Smear 02/09/2023 02/10/2020, 11/2016, 03/20/2017, Additional history exists Depression Screening 07/05/2023 07/05/2022 COVID-19 Vaccine ( season) 2024 01/28/2024, 09/07/2021, 08/16/2020, Additional history exists Albumin/Creatinine Ratio 04/06/2024 04/06/2023, 12/12 Mammogram 07/12/2024 [...] Patients (6 to 64 Years) Completed 01/02/2022 Influenza Vaccine (FLU shot) Completed 01/28/2024, 01/30/2023, [...] this encounter Medical Devices Implanted Type Area Marriage Therapist Device Identifier Shelf Expiration Date Model / Serial / Lot Kit Loop N Wing Biceps 3.9mm - [id number] Implanted:Qty: 1 on 08/25/2022 by Remi Kelly, at OR [facility] Left: Shoulder [employer] 12/12/2023 [id number] L-39 / / [id number] documented as of this encounter Advance Directives * Full Code (Latest Code Status on File) Date Activated Date Inactivated Comments 08/25/2022 11:25 AM 08/25/2022 4:41 PM This order reflects the patients wishes and were consensually agreed upon. Question Answer Comments Discussion of Advance Directives occurred with: Patient Care Teams Divinity Teacher Relationship Specialty Start Date End Date Waldo August MANE Zhao [address] [place] [address] PCP - General Physician Manager Documentation 11/03/16 documented as of this encounter
[2024-03-26] MEDS ORDERED: HYDROmorphone INJ 1 MG/ML SYRINGE IV PRN (12:39)
[2024-03-26] MEDS ORDERED: hydrOXYzine HCl 25 MG TAB PO PRN (12:39)
[2024-03-26] MEDS ORDERED: NALOXONE HCL 0.4 MG/1 ML VIAL/CARP IV PRN (12:39)
[2024-03-26] MEDS ORDERED: PSEUDOEPHEDRINE HCL 30 MG TAB PO PRN (12:39)
[2024-03-26] MEDS ORDERED: PROMETHAZINE 12.5 MG/50.5 ML BAG IV PRN (12:39)
[2024-03-26] MEDS ORDERED: bisacodyL 10 MG SUPP PR PRN (12:39)
[2024-03-26] MEDS ORDERED: ONDANSETRON INJ 2 MG/ML 2 ML VIAL IV PRN (12:39)
[2024-03-26] MEDS ORDERED: METOCLOPRAMIDE HCL INJ 5 MG/ML 2 ML VIAL IV PRN (12:39)
[2024-03-26] MEDS ORDERED: LORazepam 2 MG/1 ML VIAL IV PRN (12:39)
[2024-03-26] MEDS ORDERED: ACETAMINOPHEN 1,000 MG/100 ML VIAL IV PRN (12:39)
[2024-03-26] MEDS ORDERED: diphenhydrAMINE Capsule 25 MG CAP PO PRN ×2 (12:39)
[2024-03-26] MEDS ORDERED: ACETAMINOPHEN 500 MG TAB PO PRN (12:39)
[2024-03-26] MEDS ORDERED: ONDANSETRON 4 MG OD TAB PO PRN (12:39)
[2024-03-26] MEDS ORDERED: MAGNESIUM HYDROXIDE SUSP 30 ML UDC PO PRN (12:39)
[2024-03-26] MEDS ORDERED: FEXOFENADINE 60 MG TAB PO PRN (12:39)
[2024-03-26] MEDS ORDERED: DO NOT ADMINISTER PNEUMOCOCCAL VACCINE PRN (12:39)
[2024-03-26] MEDS ORDERED: SOD PHOSPHATE/SOD BIPHOSPHATE ENEMA 132 ML BTL PR PRN (12:39)
[2024-03-26] MEDS ORDERED: PHARMACY GLYCEMIC MGMT CONSULT PRN (12:39)
[2024-03-26] MEDS ORDERED: DO NOT ADMINISTER FLU VACCINE PRN (12:39)
[2024-03-26] MEDS: fentaNYL citrate PF 100 MCG/2 ML VIAL ONE (12:40)
[2024-03-26] MEDS ORDERED: GLUCOSE 40% GEL 15 GM TUBE PO PRN (13:15)
[2024-03-26] MEDS ORDERED: GLUCOSE 10 TAB/TUBE PO PRN (13:15)
[2024-03-26] MEDS ORDERED: DEXTROSE 50% 50 ML SYRINGE IV PRN (13:15)
[2024-03-26] MEDS ORDERED: GLUCAGON FOR INJ 1 MG VIAL SQ PRN (13:15)
[2024-03-26] MEDS ORDERED: CARBOHYDRATES FOR HYPOGLYCEMIA PO PRN (13:15)
--- NOTE | 2024-03-26 13:57 | Consultation ---
Date of Consultation March 26, 2024 Assessment & Plan (1) Spinal stenosis, lumbar region with neurogenic claudication: Plan Status post lumbar spinal surgery: DVT prophylaxis/pain management/PT and OT per primary team. Labs in AM. Monitor for acute blood loss anemia. Patient hemodynamically stable. Other chronic medical conditions: HTN, HLD --- continue with/resume home meds as when able. DVT prophylaxis: SCDs for now, chemo DVT prophylaxis per primary team. Full code Time spent: 43 minutes History of Present Illness Requesting Physician: Dr. Rosas Reason for Consultation: Medical management Attending Physician: Enoch Rosas, DO History of Present Illness 59-year-old lady with PMH of HTN, HLD, spinal stenosis of lumbar region with neurogenic claudication was seen and examined as a part of medical consult status post spinal surgery. Patient hemodynamically stable, on 2 L oxygen, awake and oriented, cannot comment on improvement of her LLE radicular symptoms yet, reports operative site pain under control. Denies any flulike illness or febrile illness in the last 1 week, denies any lightheadedness or dizziness or chest pain or sore throat or cough or belly pain or pain or burning with passing urine. Allergies Allergy/AdvReac Type Severity Reaction Status Date / Time Iodinated Contrast Media Allergy Unknown IVP Verified 03/26/24 07:50 DYE-HIVES latex Allergy Unknown REACTION Verified 03/26/24 07:50 TO LATEX POWDER ONLY Penicillins Allergy Unknown Patient Verified 03/26/24 07:50 avoids due to Family History strawberry Allergy Unknown HIVES, Verified 03/26/24 07:50 TROUBLE BREATHING Home Medications Medication Instructions Recorded Confirmed Type diphenhydramine HCl 25 mg capsule 25 mg PO UD PRN SEASONAL ALLERGIES 10/08/18 03/26/24 History (Benadryl) fexofenadine 60 mg tablet (Jessica 60 mg PO UD PRN SEASONAL ALLERGIES 10/08/18 03/26/24 History Allergy) hydrochlorothiazide 25 mg tablet 25 mg PO QAM 10/08/18 03/26/24 History pantoprazole 40 mg tablet,delayed 40 mg PO QAM 10/08/18 03/26/24 History release pseudoephedrine HCl 30 mg tablet 30 mg PO UD PRN SEASONAL ALLERGIES 10/08/18 03/26/24 History (Sudafed) acetaminophen 300 mg-codeine 30 mg 1 tab PO Q6H PRN Headache 05/09/20 03/26/24 History tablet citalopram 40 mg tablet 40 mg PO QAM 07/05/23 03/26/24 History cyclosporine 0.05 % eye drops in a 1 drp OPB DAILY 07/05/23 03/26/24 History dropperette (Restasis) diclofenac sodium 75 mg 75 mg PO QAM 07/05/23 03/26/24 History tablet,delayed release lisinopril 10 mg tablet 10 mg PO QAM 07/05/23 03/26/24 History metformin 500 mg tablet,extended 500 - 1,000 mg PO UD 07/05/23 03/26/24 History release 24 hr rosuvastatin 5 mg tablet 5 mg PO QAM 07/05/23 03/26/24 History Patient History Medical History Acid reflux controlled Anxiety and depression Fatty liver History of anemia HX IRON INFUSIONS X 2 (around 2018); SINCE IMPROVED Hx of migraines Hyperlipidemia Hypertension Osteoarthritis Post herpetic neuralgia left shoulder blade (since 2018) Sleep apnea CPAP Spinal stenosis Type 2 diabetes mellitus NIDDM Surgical History History of carpal tunnel surgery of right wrist History of cholecystectomy History of colonoscopy History of dilation and curettage w/removal uterine polyps History of esophagogastroduodenoscopy (EGD) History of lumbar fusion 2016, L4-L5 2019, L3-L4 and removal hardware L4-L5 History of shoulder surgery right shoulder decompression, 2017 left shoulder biceps tendonesis, 08/2022 History of wisdom tooth extraction Family History Mother Family history of lung cancer Father Family history of rectal cancer Grandfather Family history of breast cancer Other Family history of breast cancer in mother Social History Smoking Status: Former smoker Tobacco Type: Cigarettes Smoking End Date: 1987; Second Hand Exposure: No; Do You Dip or Chew Tobacco: No; Tobacco Cessation Education Requested by Patient: No Hx Alcohol Use: Yes Alcohol type: beer and wine Hx Substance Use: Yes Last Used Substance Other:: many years ago-occasional use only (nothing since ) Preferred Language: Citizen Of [place] Communication Ability: Effective Visual Impairment: Partially Limited Polyethylene Bag Machine Operator Required: No Beliefs That Will Affect Care: None marital status: Current Living Situation: Spouse Other Information That Helps Us Care for You: No Feels Safe at Home: Yes Safety Concerns: Feels Safe At This Time Assistive Devices: CPAP and Glasses Review of Systems Review of Systems: Negative otherwise mentioned in HPI. Physical Exam Physical Exam: GENERAL: Alert and oriented x3. NAD, on 2L NC O2. HEENT: No pallor, no icterus. Pupils equal, round and reactive to light. Oral mucosa moist. NECK: No JVD, no neck masses. HEART: S1 and S2 heard. Regular rate and rhythm. No murmur, no gallop. RESPIRATORY SYSTEM: Normal AP diameter. No accessory muscle use. No wheezing, no crackles. ABDOMEN: Soft, bowel sounds present, nontender, no distention. CENTRAL NERVOUS SYSTEM: No facial droop. Speech is clear. Obeys simple commands. Moves extremities. EXTREMITIES: No edema, no erythema seen. Distal neurovascular status of lower extremities WNL. Urinary catheter with scant light yellow urine in the bag. Low back dressing without soakage. JORDY drain with moderate serosanguineous collection noted. Results & Data Vital Signs (Past 12 Hours) Vital Signs Temp Pulse Pulse Resp BP BP Pulse Ox 03/26/24 13:49 37.0 C 81 16 108/65 98 03/26/24 13:11 03/26/24 13:09 36.9 C 82 16 115/69 95 03/26/24 12:50 37.2 C 80 16 107/67 96 03/26/24 12:30 78 15 115/64 94 03/26/24 12:20 79 15 117/67 96 03/26/24 12:10 84 23 109/69 95 03/26/24 12:00 79 15 111/64 92 03/26/24 11:50 36.8 C 80 13 114/65 96 03/26/24 11:40 83 13 111/65 94 03/26/24 11:30 83 16 119/64 98 03/26/24 11:20 88 16 121/68 95 03/26/24 11:13 36.6 C 87 12 136/72 95 03/26/24 07:53 36.8 C 80 18 157/89 H 97 O2 Del Method O2 Flow Rate 03/26/24 13:49 Room Air 03/26/24 13:11 Nasal Cannula 2 03/26/24 13:09 Nasal Cannula 2 03/26/24 12:50 Nasal Cannula 2 03/26/24 12:30 Nasal Cannula 2 03/26/24 12:20 Nasal Cannula 2 03/26/24 12:10 Nasal Cannula 2 03/26/24 12:00 Nasal Cannula 2 03/26/24 11:50 Nasal Cannula 3 03/26/24 11:40 Nasal Cannula 3 03/26/24 11:30 Oxymask 4 03/26/24 11:20 Oxymask 8 03/26/24 11:13 Oxymask 8 03/26/24 07:53 Room Air
[2024-03-26] MEDS ORDERED: ARTIFICIAL TEARS OP PRN (14:01)
[2024-03-26] MEDS: HYDROmorphone INJ 0.5 MG/0.5 ML SYR IV PRN (14:10)
--- NOTE | 2024-03-26 14:15 | Pharmacy Report ---
Pharmacy Glycemic Short Note 2 - Date of Service March 26, 2024 - Glycemic Short BSG Results (Last 24 hours): 03/26/24 03/26/24 03/26/24 07:58 11:17 13:07 POC Glucose 114 H 119 H 128 H OUTPATIENT ANTIDIABETIC REGIMEN: * METFORMIN 500 mg in the morning and 1000 mg in the evening. ASSESSMENT: * This is a 59-year-old female came to the hospital because of worsening back and leg pain. she had a surgical intervention. * this is a post op day 0, status post is spinal surgery. * patients received preop steroids and ongoing steroids was ordered too after surgery. * BSC poc (mg/dl): 114 in the morning, 119 at lunch time. PLAN FOR INPATIENT GLYCEMIC CONTROL: * Hold outpatient oral diabetes medications * Basal insulin * hold * Bolus insulin * NovoLog per scale ACHS or Q6hrs while NPO * Goal Range: Low 110 mg/dL - High 140 mg/dL * Correction Factor: 25 mg/dL/unit * Nutritional / Prandial insulin per carb ratio of 1 unit per 8 grams CHO consumed
[2024-03-26] MEDS: INSULIN ASPART PER UNIT CHARGE SC SCH (14:17)
--- NOTE | 2024-03-26 14:45 | Anesthesiology Progress Note ---
Date of Service March 26, 2024 Anesthesia Post Procedure Vital Signs Vital Signs: Temp Pulse Pulse Resp BP BP Pulse Ox 03/26/24 13:49 37.0 C 81 16 108/65 98 03/26/24 13:11 03/26/24 13:09 36.9 C 82 16 115/69 95 03/26/24 12:50 37.2 C 80 16 107/67 96 03/26/24 12:30 78 15 115/64 94 03/26/24 12:20 79 15 117/67 96 03/26/24 12:10 84 23 109/69 95 03/26/24 12:00 79 15 111/64 92 03/26/24 11:50 36.8 C 80 13 114/65 96 03/26/24 11:40 83 13 111/65 94 03/26/24 11:30 83 16 119/64 98 03/26/24 11:20 88 16 121/68 95 03/26/24 11:13 36.6 C 87 12 136/72 95 03/26/24 07:53 36.8 C 80 18 157/89 H 97 O2 Del Method O2 Flow Rate 03/26/24 13:49 Room Air 03/26/24 13:11 Nasal Cannula 2 03/26/24 13:09 Nasal Cannula 2 03/26/24 12:50 Nasal Cannula 2 03/26/24 12:30 Nasal Cannula 2 03/26/24 12:20 Nasal Cannula 2 03/26/24 12:10 Nasal Cannula 2 03/26/24 12:00 Nasal Cannula 2 03/26/24 11:50 Nasal Cannula 3 03/26/24 11:40 Nasal Cannula 3 03/26/24 11:30 Oxymask 4 03/26/24 11:20 Oxymask 8 03/26/24 11:13 Oxymask 8 03/26/24 07:53 Room Air Pain Intensity Left Leg: Pain Intensity: 2 Back: Pain Intensity: 4 Transfer of Care Handoff Completed per policy Notes Mental Status: alert / awake / arousable Patient Amnestic to Procedure: Yes Nausea / Vomiting: adequately controlled Pain: adequately controlled Airway Patency, RR, SpO2: stable & adequate BP & HR: stable & adequate Hydration State: stable & adequate Anesthetic Complications: no major complications apparent and Pt Satisfied with anesthetic care
[2024-03-26] MEDS: oxyCODONE HCL IR 5 MG TAB (IMMEDIATE RELEASE) PO PRN (14:53)
[2024-03-26] MEDS: DOCUSATE SODIUM/SENNA 50/8.6MG TAB PO SCH (20:49)
[2024-03-27] MEDS: POLYETHYLENE (MIRALAX) 17 GM PACK PO SCH (05:51)
[2024-03-27] MEDS: LORazepam 0.5 MG TAB PO PRN (05:53)
[2024-03-27 06:43] LABS: Basophils # (auto) 0.01 K/uL (0.00-0.20); Basophils % (auto) 0.1 %; Eosinophils # (auto) 0.04 K/uL (0.00-0.50); Eosinophils % (auto) 0.3 %; Hematocrit (blood only) 30.2 % (37.0-47.0); Hemoglobin 9.9 g/dl (12.0-16.0); Immature Granulocytes # (auto) 0.04 K/uL (0.01-0.20); Immature Granulocytes % (auto) 0.3 %; Lymphocytes # (auto) 2.09 K/uL (1.20-3.40); Lymphocytes % (auto) 15.6 %; Mean Corpuscular Hgb Conc 32.8 g/dL (32.0-36.0); Mean Corpuscular Volume 82.3 fL (80.0-100.0); Mean Platelet Volume 9.3 fL (9.4-12.4); Monocytes # (auto) 1.26 K/uL (0.11-0.59); Monocytes % (auto) 9.4 %; Neutrophils # (auto) 9.92 K/uL (1.40-6.50); Neutrophils % (auto) 74.3 %; Platelet Count 284 K/uL (130-400); RDW Coefficient of Variation 13.3 % (11.5-14.5); RDW Standard Deviation 40.4 fL (36.4-46.3); Red Blood Count 3.67 M/uL (4.20-5.40); White Blood Count 13.36 K/ul (4.8-10.8)
[2024-03-27 07:00] LABS: Calcium 9.1 mg/dl (8.6-10.3); Creatinine Clr Calc Pharmacy 56.6 ml/min; Magnesium 1.7 mg/dl (1.7-2.4); Phosphorus 3.7 mg/dl (2.5-4.9); Potassium 3.7 mmol/L (3.5-5.1)
[2024-03-27] MEDS: CITALOPRAM 40 MG TAB PO SCH (08:05)
[2024-03-27] MEDS: hydroCHLOROthiazide 25 MG TAB PO SCH (08:05)
[2024-03-27] MEDS: lisinopril 10 MG TAB PO SCH (08:05)
[2024-03-27] MEDS: PANTOprazole 40 MG TAB PO SCH (08:05)
[2024-03-27] MEDS: ROSUVASTATIN CALCIUM 5 MG TAB PO SCH (08:05)
[2024-03-27] MEDS: dexAMETHasone 6 MG in SYRINGE 0 ML IV SCH (08:05)
--- NOTE | 2024-03-27 10:14 | Orthopedic Progress Note ---
Date of Service March 27, 2024 Assessment & Plan (1) Spinal stenosis, lumbar region with neurogenic claudication: Plan: At this point we will continue physical therapy monitor JORDY output hopefully discharge home the next few days. Admission and Anticipated Discharge Date Admission Date: March 26, 2024 Subjective Back pain controlled leg pain improved Physical Exam Physical Exam: Patient is in the chair at the bedside. She is comfortable. Distracted testing. Results & Data Vital Signs (Past 12 Hours) Vital Signs Temp Pulse Resp BP BP Pulse Ox O2 Del Method 03/27/24 07:09 36.7 C 72 16 105/70 93 Room Air 03/27/24 03:47 36.6 C 79 14 102/66 96 Room Air 03/26/24 23:18 36.6 C 77 14 105/67 96 CPAP Queries Orthopedic Spine Obesity: Yes
--- NOTE | 2024-03-27 15:18 | Hospitalist Progress Note ---
Date of Service March 27, 2024 Assessment & Plan (1) Spinal stenosis, lumbar region with neurogenic claudication: Plan Lumbar spinal stenosis with neurogenic claudication S/P lumbar decompression, fusion surgery by Dr. Rosas on 03/26/2024 Postoperative acute blood loss anemia Leukocytosis likely reactive, also secondary to steroids DVT px/pain management as per primary team Monitor CBC, no indication for blood transfusion currently Continue incentive spirometry, bowel regimen Continue PT OT as able Other chronic conditions Hypertension Hyperlipidemia Mood disorder Diabetes mellitus Continue home medications as able Continue insulin while hospitalized for management of diabetes mellitus, monitor blood glucose levels DVT Px: SCDs per primary team. Code Status Full code Admission and Anticipated Discharge Date Admission Date: March 26, 2024 Subjective Patient is seen and examined at bedside Back pain is controlled with medications + Flatus, no BM today Denies any chest pain, dyspnea, dizziness No other complaints Review of Systems Review of Systems: All systems reviewed & are unremarkable except as noted in Subjective Physical Exam Physical Exam: Physical Exam: Vitals signs as noted above General Appearance:Obese, no apparent distress Head: normocephalic, Atraumatic Eyes: normal inspection, EOMI Neck: supple, Trachea midline Respiratory/Chest: Normal breath sounds, CTA, No accessory muscle use Cardiovascular: S1, S2, No murmur Abdomen/GI:Soft, Non tender, Bowel sounds present Back: Surgical site in dressing,+ drain Extremities/Musculoskeletal:normal inspection, Trace edema Neurologic/Psych:AAOX3, grossly no focal neurological deficits Skin: normal color, warm Results & Data Results & Data Vital Signs (Past 12 Hours) Vital Signs Temp Pulse Pulse Resp BP BP Pulse Ox 03/27/24 14:39 37.0 C 76 16 106/68 92 03/27/24 11:52 37.3 C 78 16 113/72 93 03/27/24 07:09 36.7 C 72 16 105/70 93 03/27/24 03:47 36.6 C 79 14 102/66 96 O2 Del Method 03/27/24 14:39 Room Air 03/27/24 11:52 Room Air 03/27/24 07:09 Room Air 03/27/24 03:47 Room Air Laboratory Results Short CBC 03/27/24 Range/Units 06:09 WBC 13.36 H (4.8-10.8) K/ul Hgb 9.9 L (12.0-16.0) g/dl Hct 30.2 L (37.0-47.0) % Plt Count 284 (130-400) K/uL BMP 03/27/24 06:09 Sodium 134 L Potassium 3.7 Chloride 97 L Carbon Dioxide 29 BUN 16 Creatinine 1.00 Glucose 132 H Calcium 9.1
[2024-03-27 20:37] VITALS: RESP 18
[2024-03-28] MEDS: ALUMINUM/MAGNESIUM SUSP 30 ML UDC PO PRN (00:03)
[2024-03-28] MEDS: FAMOTIDINE 20 MG TAB PO PRN (03:04)
[2024-03-28 06:21] LABS: Hematocrit (blood only) 30.7 % (37.0-47.0); Hemoglobin 10.5 g/dl (12.0-16.0); Mean Corpuscular Hemoglobin 27.7 pg (25.0-34.0); Mean Corpuscular Hgb Conc 34.2 g/dL (32.0-36.0); Mean Platelet Volume 9.5 fL (9.4-12.4); Platelet Count 295 K/uL (130-400); RDW Coefficient of Variation 13.4 % (11.5-14.5); RDW Standard Deviation 39.7 fL (36.4-46.3); Red Blood Count 3.79 M/uL (4.20-5.40); White Blood Count 14.11 K/ul (4.8-10.8)
[2024-03-28 06:39] LABS: BUN Creatinine Ratio 21.7 (10-20); Calcium 9.5 mg/dl (8.6-10.3); Creatinine Clr Calc Pharmacy 61.5 ml/min; Magnesium 2.1 mg/dl (1.7-2.4)
[2024-03-28] MEDS: traMADol HCL 50 MG TABLET PO PRN (07:04)
[2024-03-28 08:40] VITALS: O2SAT 97
--- NOTE | 2024-03-28 08:42 | Hospitalist Progress Note ---
Date of Service March 28, 2024 Assessment & Plan (1) Spinal stenosis, lumbar region with neurogenic claudication: Plan Lumbar spinal stenosis with neurogenic claudication S/P lumbar decompression, fusion surgery by Dr. Rosas on 03/26/2024 Postoperative acute blood loss anemia - stable hgb at 10.5 today (9.9 yesterday) Leukocytosis likely reactive, also secondary to steroids DVT px/pain management as per primary team Monitor CBC, no indication for blood transfusion currently Continue incentive spirometry, bowel regimen Continue PT/OT as able Dyspepsia Post-op, insetting of steroids. Discussed continuing protonix BID for now, Pepcid PRN. PCP follow up if continues Other chronic conditions Hypertension Hyperlipidemia Mood disorder Diabetes mellitus Continue home medications as able Continue insulin while hospitalized for management of diabetes mellitus, monitor blood glucose levels DVT Px: SCDs per primary team. Code Status Full code Care coordinated with Dr. Cummings. I spent a total of 40 minutes coordinating, documenting, and providing care for this patient excluding time spent in the performance of separately billed services. Admission and Anticipated Discharge Date Admission Date: March 26, 2024 Supervising Physician Co-Signing Physician Notes Patient is seen and examined at bedside States having back pain especially with movement, ambulation Also reports heartburn today No other complaints Physical Exam: Vitals signs as noted above General Appearance:Obese, no apparent distress Head: normocephalic, Atraumatic Eyes: normal inspection, EOMI Neck: supple, Trachea midline Respiratory/Chest: Normal breath sounds, CTA, No accessory muscle use Cardiovascular: S1, S2, No murmur Abdomen/GI:Soft, Non tender, Bowel sounds present Back: Surgical site in dressing,+ drain Extremities/Musculoskeletal:normal inspection, Trace edema Neurologic/Psych:AAOX3, grossly no focal neurological deficits Skin: normal color, warm Lumbar spinal stenosis with neurogenic claudication S/P lumbar decompression, fusion surgery by Dr. Rosas on 03/26/2024 Postoperative acute blood loss anemia Continue PT OT Continue wound care Advised to follow-up with PCP on discharge GERD Heartburn likely due to steroids, stress Increase Protonix to twice a day Pepcid as needed I personally interviewed and examined at bedside. Patient's care is coordinated with Chanel Hall PA-C. I have reviewed the advanced practitioner's documentation, and I agree with plan of care. Please refer to the documentation above for details of patient's presentation and for discussion of other issues. I spent a total [id number] coordinating, documenting, and providing care for this patient excluding time spent in the performance of separately billed services. Subjective Patient seen and examined in 317 bed 1. Endorsing surgical site pain. No pain or paresthesias of bilateral lower extremity which is significant improvement from preop state. No fever, chills, chest pain, shortness of breath. Urinating without difficulty. Endorsing postop flatus, no bowel movement yet. Review of Systems Review of Systems: At least ten systems reviewed and negative except as noted in the HPI. Physical Exam Physical Exam: Gen: WD/WN, NAD, resting in bed comfortably, A&Ox3 HEENT: Normocephalic, atraumatic, conjunctivae moist, sclerae anicteric, mucous membranes moist Lung: Clear to Auscultation bilaterally, no wheezes/rales/rhonchi Heart: Regular rate, regular rhythm, no murmurs, rubs, or gallops Abdomen: Soft, NT, ND +BS x 4 Extremities: + Spinal dressing c/d/i, JORDY drain with minimal output. No edema Skin: Warm, no rash Results & Data Results & Data Vital Signs (Past 12 Hours) Vital Signs Temp Pulse Resp BP Pulse Ox O2 Del Method 03/28/24 08:00 36.8 C 72 18 108/60 97 Room Air Laboratory Results Short CBC 03/28/24 Range/Units 05:50 WBC 14.11 H (4.8-10.8) K/ul Hgb 10.5 L (12.0-16.0) g/dl Hct 30.7 L (37.0-47.0) % Plt Count 295 (130-400) K/uL BMP 03/28/24 05:50 Sodium 137 Potassium 4.0 Chloride 98 Carbon Dioxide 33 H BUN 20 Creatinine 0.92 Glucose 106 H Calcium 9.5 Diagnostic Findings Lumbar Spine X-Ray 03/26/24 09:15 FL lumbar spine 2-3V CLINICAL HISTORY: L2-L3 DECOMPRESSION AND FUSION L3-L4 HW REMOVAL COMPARISON STUDY: Lumbar spine MRI February 08, 2024. FLUOROSCOPY TIME: 13 seconds. Ka, r: 9 mGy FLUOROSCOPIC IMAGES: 2 FINDINGS: Fluoroscopy was provided during hardware removal and subsequent L2-L3 decompression with interbody spacer placement. There are bilateral pedicle screws at the L2, L3 and L4 levels. Previous L3-L4 and L4-L5 disc spacers are place. IMPRESSION: Fluoroscopy provided during hardware removal and subsequent decompression and fusion, as described above. ACT 112: Negative or not required by law. Electronically signed by: Je Swift M.D. 03/26/2024 11:40 AM
[2024-03-28] MEDS ORDERED: FAMOTIDINE 20MG IV PUSH 20 MG/5 ML SYR IV PRN (10:00)
--- NOTE | 2024-03-28 11:45 | Discharge Summary ---
Date of Service March 28, 2024 Admission HPI Per Admitting Provider This is a 59-year-old female well-known to us the presents with worsening back and leg pain. Her failing course of nonoperative care she is here for surgical intervention. Principal Diagnosis Lumbar spinal stenosis with neurogenic claudication Discharge Data Allergies Allergy/AdvReac Type Severity Reaction Status Date / Time Iodinated Contrast Media Allergy Unknown IVP Verified 03/26/24 07:50 DYE-HIVES latex Allergy Unknown REACTION Verified 03/26/24 07:50 TO LATEX POWDER ONLY Penicillins Allergy Unknown Patient Verified 03/26/24 07:50 avoids due to Family History strawberry Allergy Unknown HIVES, Verified 03/26/24 07:50 TROUBLE BREATHING Consultations 03/26/24 12:39 Consult Hospitalist Routine Procedures Performed Operation Date: 03/26/24 09:15 Actual Procedures p L2-L3 Decompression and Fusion, Spinal Cord Monitoring(Not Applicable) - Enoch Rosas DO s L3-L4 Hardware Removal(Not Applicable) - Enoch Rosas DO Ordered Studies 03/26/24 09:15 FL lumbar spine 2-3V Routine Hospital Course (1) Spinal stenosis, lumbar region with neurogenic claudication: Patient with lumbar decompression fusion tolerated this well [facility]. Postop patient progressed appropriate. Pain improved. Ambulating well. Extra strength testing. JORDY drain decreasing appropriately. Subsidy discharged home. Discharge orders instructions from the chart for further review. Total Time Total Time Spent Total Time Spent (In Minutes): 20 minutes Discharge Plan Discharge Items Patient Disposition: Home - Self-Care Reason For Visit: Foraminal Stenosis of Lumbar Region, Spondylolisth Discharge Diagnosis: Lumbar spinal stenosis with neurogenic claudication Activity: As commented below Non-emergency contact: Primary Care Provider Call non-emergency contact if: you have any medication questions Follow-up/Referrals: Christine Haas PA-C [Primary Care Provider] - Diet: Regular Addtl Attending Provider Instructions: ACTIVITY RECOMMENDATIONS: SELF CARE INSTRUCTIONS AFTER THORACIC/LUMBAR FUSIONS 1. You may walk to your tolerance. It is good exercise for your legs and back. Expect some back and intermittent leg aches and pains. 2. You may perform "counter-top" level activities (make a sandwich, dusty with a project, etc.). 3. No bending or lifting of more than 10 pounds or back twisting of any nature (roll like a log when turning in bed). 4. You may ride in a car for 20-30 minutes at a time. No driving until after your first visit with your doctor. 5. Frequent changes of position and restricting sitting to 30 minutes at a time will help limit the amount of back spasms and stiffness you may experience. 6. You may discontinue the use of ambulatory aids (cane, crutches, etc.) once your strength and confidence allow. 7. You may hairspring setter the shower and let water strike your incision when you arrive home at least once daily. Do not take a tub bath, sit in a hot tub or go into a swimming pool until after your first recheck in the office. 8. You may resume previous diet. SPECIAL CARE INSTRUCTIONS: VERY IMPORTANT TO READ AND REVIEW A. Your surgical incision has been closed with a cosmetic suture under the skin that will dissolve in about 6 weeks. In 14 days, you can use a pair of clean scissors and cut the suture that is left outside of the skin at the ends of your incision. 1. The small skin tapes can be removed 7 days after surgery if they have not fallen off by that point. 2. You may keep the wound open to air as much as possible to promote healing after post-op day number 5 unless told otherwise by your doctor. 3. If you think the wound looks like it is becoming infected (redness or worsening drainage) and/or you are experiencing fever, chill or worsening back pain and muscle spasms, contact the office so that we may evaluate you as soon as possible. B. Complications are uncommon, but please contact us if you have any signs or symptoms of: 1. wound infection (fever higher than 102.5 degrees F, redness, separation of wound, drainage, or increasing pain from the incision) 2. blood clots in legs (pain, swelling, redness and warmth in legs) 3. urinary tract infection (fever higher than 102.5 degrees F, burning upon urination or increased frequency of urination) 4. nerve problems (inability to walk on your toes or heels, numbness, loss of bowel or bladder control) 5. any other symptoms that concern you C. Please call the office at if you have any concerns or quest ions about your operation or recovery. D. No smoking! Smoking drastically decreases the chance of a solid fusion. E. Do not take any anti-inflammatory medications (Indocin, Advil, Motrin, Aspirin, Naprosyn, etc.) as these may inhibit the chance of a solid fusion. Tylenol is okay to take for pain. MANAGING PAIN AFTER SPINAL SURGERY 1. Narcotic medication is intended for short-term use and will be provided for surgical pain. Surgical pain usually lasts for a period of 4-6 weeks. Narcotic medication includes Percocet, Vicodin, Darvocet, Tylenol #3 or Lortab. 2. Longer-term pain is more appropriately treated with non-narcotic medication such as Tylenol ES. 3. Muscle spasm is not appropriately treated with narcotics. Muscle relaxers such as Soma, Flexeril or Skelaxin can be used along with Tylenol ES. 4. Remember that we all live with some "aches and pains". This is not unusual or uncommon after an injury or as we get older. a. Back pain is expected and may include muscle spasms for 4 to 6 weeks after surgery. The pain should gradually improve. If the pain worsens for no apparent reason, please contact the office. b. Intermittent leg pain may also be experienced and should not be concerned about unless it worsens for no apparent reason. If so, please contact the office. 5. We will provide appropriate medication within the normal guidelines of their prescribed use. We will also be very cautious and aware of potential abuse and extended duration of patients' medication needs. a. Pain medications are for your comfort and to assist with sleep and rest so that the tissue can heal. They are not provided in order to return to normal activity and should not be used through the day. To do so or worsening pain at night can result from ongoing tissue damage and development of tolerance to the prescribed medicine. 6. Please allow 2-3 days to process refills. Prescriptions will not be mailed but must be picked up at the office. FOLLOW UP VISIT: Keep your scheduled follow-up appointment. Any questions, please call the office at . Pending Studies at Discharge: No Stand-Alone Forms: [employer], Smoking Cessation Medications and DC Order Prescriptions: New tramadol 50 mg tablet 50 mg PO Q6H PRN (Reason: pain, moderate) Qty: 30 0RF oxycodone 5 mg tablet 5 mg PO Q6H PRN (Reason: pain) Qty: 30 0RF Continued acetaminophen-codeine 300-30 mg tablet 1 tab PO Q6H PRN (Reason: Headache) pantoprazole 40 mg Tablet,Delayed Release (Dr/Ec) 40 mg PO QAM hydrochlorothiazide 25 mg Tablet 25 mg PO QAM diphenhydramine HCl [Benadryl] 25 mg Capsule 25 mg PO UD PRN (Reason: SEASONAL ALLERGIES) fexofenadine [Jessica Allergy] 60 mg Tablet 60 mg PO UD PRN (Reason: SEASONAL ALLERGIES) pseudoephedrine HCl [Sudafed] 30 mg Tablet 30 mg PO UD PRN (Reason: SEASONAL ALLERGIES) citalopram 40 mg tablet 40 mg PO QAM lisinopril 10 mg tablet 10 mg PO QAM metformin 500 mg tablet extended release 24 hr 500 - 1,000 mg PO UD Rx Instructions: Take 500mg by mouth in the morning and 1000mg by mouth in the evening cyclosporine [Restasis] 0.05 % dropperette 1 drp OPB DAILY rosuvastatin 5 mg tablet 5 mg PO QAM Discontinued diclofenac sodium 75 mg tablet,delayed release (DR/EC) 75 mg PO QAM Discharge Orders: Discharge Order (Routine); Ordered 03/28/24 Ordered By: Enoch Rosas Admission Data Admit Date/Time: 03/26/24 10:58 Attending Provider: Enoch Rosas Admit Provider: Enoch Rosas Primary Care Provider: Christine Haas Other Providers: Alyse Viveros; Chanel Hall; Shane Cummings
[2024-03-28 12:05] VITALS: BP 118/74; PULSE 74; TEMP 99.3
[2024-03-28] MEDS ORDERED: PANTOprazole 40 MG TAB PO SCH (21:00)
== END 2024-03-28 13:56 | disposition home or self-care (01) | DRG 402 ==
LOC: ASU 07:20 → 3E 10:58